=== PATIENT | male | born 1955 | race American Indian/Alaskan Native ===

== ENCOUNTER 2021-04-28 17:52 | Inpatient (IN) | payer BC ==
[2021-04-28] MEDS ORDERED: FUROSEMIDE 40 MG/4 ML INJ IV ONE (18:54)
[2021-04-28] MEDS ORDERED: METOPROLOL TARTRATE 5 MG/5 ML INJ IV ONE (18:59)
[2021-04-28 19:58] LABS: Basophils # (Auto) 0.1 K/mm3 (0.0-0.1); Basophils % (Auto) 0.6 % (0.0-1.8); Eosinophils # (Auto) 0.1 K/mm3 (0.0-0.4); Eosinophils % (Auto) 1.1 % (0.0-4.3); Hematocrit 37.8 % (35.5-45.6); Hemoglobin 12.2 gm/dl (11.8-15.2); Lymphocytes # (Auto) 2.8 K/mm3 (1.2-5.4); Lymphocytes % (Auto) 25.3 % (13.4-35.0); Mean Corpuscular HGB Conc 32 % (32-34); Mean Corpuscular Volume 91 fl (84-94); Monocytes # (Auto) 1.3 K/mm3 (0.0-0.8); Monocytes % (Auto) 11.6 % (0.0-7.3); Platelet Count 281 K/mm3 (140-440); Red Blood Count 4.15 M/mm3 (3.65-5.03); Red Cell Distribution Width 15.2 % (13.2-15.2)
--- NOTE | 2021-04-28 20:08 | XRay Report ---
XR chest routine 2V INDICATION / CLINICAL INFORMATION: Dyspnea COMPARISON: None available. FINDINGS: SUPPORT DEVICES: None. HEART / MEDIASTINUM: No significant abnormality. LUNGS / PLEURA: Lungs are clear. Costophrenic sulcal blunting with mild bibasilar opacities. ADDITIONAL FINDINGS: No significant additional findings. IMPRESSION: 1. Small effusions with bibasilar atelectasis. Signer Name: Christian Fuller MD Signed: 04/28/2021 8:04 PM Workstation Name: [id number]
[2021-04-28 20:12] LABS: Creatine Kinase MB 4.5 ng/mL (0.0-4.0)
[2021-04-28 20:13] LABS: INR 0.94 (0.87-1.13)
[2021-04-28 20:14] LABS: Albumin 3.5 g/dL (3.9-5); Calcium 9.5 mg/dL (8.4-10.2)
[2021-04-28 20:25] LABS: Chol/HDL Ratio 3.8 %
[2021-04-28] MEDS ORDERED: ASPIRIN 325 MG TAB PO ONE (20:35)
[2021-04-28] MEDS ORDERED: NITROGLYCERIN DRIP 50 MG/250 ML BOTTLE IV SCH (21:00)
--- NOTE | 2021-04-28 21:59 | Emergency Department Report ---
ED General Adult HPI - General Chief complaint: Dyspnea/Respdistress Stated complaint: SENT FROM [facility] Time Seen by Provider: 04/28/21 18:51 Source: patient Mode of arrival: Ambulatory Limitations: No Limitations - History of Present Illness Initial comments: lower extremity edema CHF ,newly diagnosed was sent from cardiology office for admission BP is leevated no chest pain -: Gradual, days(s) Consistency: constant Improves with: none Worsens with: none - Related Data Allergies Allergy/AdvReac Type Severity Reaction Status Date / Time No Known Allergies Allergy Unverified 04/28/21 18:02 ED Review of Systems ROS: Stated complaint: SENT FROM [facility] Other details as noted in HPI Constitutional: denies: chills, fever Eyes: denies: eye pain, eye discharge, vision change ENT: denies: ear pain, throat pain Respiratory: denies: cough, shortness of breath, wheezing Cardiovascular: denies: chest pain, palpitations Endocrine: no symptoms reported Gastrointestinal: denies: abdominal pain, nausea, diarrhea Genitourinary: denies: urgency, dysuria Musculoskeletal: denies: back pain, joint swelling, arthralgia Skin: denies: rash, lesions Neurological: denies: headache, weakness, paresthesias Psychiatric: denies: anxiety, depression Hematological/Lymphatic: denies: easy bleeding, easy bruising ED Past Medical Hx - Past Medical History Previous Medical History?: Yes Hx Hypertension: Yes ED Physical Exam - General Limitations: No Limitations General appearance: alert, in no apparent distress - Head Head exam: Present: atraumatic, normocephalic - Eye Eye exam: Present: normal appearance - ENT ENT exam: Present: mucous membranes moist - Neck Neck exam: Present: normal inspection - Respiratory Respiratory exam: Present: normal lung sounds bilaterally. Absent: respiratory distress - Cardiovascular Cardiovascular Exam: Present: regular rate, normal rhythm. Absent: systolic murmur, diastolic murmur, rubs, gallop - GI/Abdominal GI/Abdominal exam: Present: soft, normal bowel sounds - Rectal Rectal exam: Present: deferred - Extremities Exam Extremities exam: Present: normal inspection - Back Exam Back exam: Present: normal inspection - Neurological Exam Neurological exam: Present: alert, oriented X3 - Psychiatric Psychiatric exam: Present: normal affect, normal mood - Skin Skin exam: Present: warm, dry, intact, normal color. Absent: rash ED Course Vital Signs 04/28/21 18:01 Temperature 98.2 F Pulse Rate 102 H Respiratory 20 Rate Blood Pressure 145/119 [Right] O2 Sat by Pulse 99 Oximetry ED Medical Decision Making - Lab Data Result diagrams: 04/28/21 19:22 04/28/21 19:22 Critical care attestation.: If time is entered above; I have spent that time in minutes in the direct care of this critically ill patient, excluding procedure time. ED Disposition Clinical Impression: Hypertensive urgency, CHF exacerbation Disposition: ADMITTED INPATIENT Is pt being admited?: Yes Does the pt Need Aspirin: Yes Condition: Fair
[2021-04-28 22:47] LABS: Bilirubin,Urine NEG (Negative); Blood,Urine NEG (Negative); Color,Urine Yellow (Yellow); Mucus,Urine FEW /HPF; Urobilinogen,Urine < 2.0 mg/dL (<2.0)
[2021-04-28 22:50] LABS: RBC,Urine < 1.0 /HPF (0.0-6.0)
[2021-04-28] MEDS ORDERED: ONDANSETRON 4 MG/2 ML INJ IV PRN (22:52)
[2021-04-28] MEDS ORDERED: MORPHINE 4 MG/1 ML INJ IV PRN (22:52)
[2021-04-28] MEDS ORDERED: MORPHINE 2 MG/1 ML INJ IV PRN (22:52)
[2021-04-28] MEDS ORDERED: ACETAMINOPHEN 325 MG TAB PO PRN (22:52)
[2021-04-28] MEDS ORDERED: MAGNESIUM HYDROXIDE (MOM) ORAL LIQD UDC PO PRN (22:52)
--- NOTE | 2021-04-28 23:00 | History and Physical Report ---
History of Present Illness Date of examination: 04/28/21 Date of admission: 04/28/2021 Chief complaint: Lower Extremity Swelling History of present illness: 66-year-old -[place] male with known history of hypertension and recently diagnosed with CHF presents to the emergency room today complaining of shortness of breath and progressive swelling of his lower extremities. Patient has been having worsening swelling of his extremities over the past few weeks which he initially attributed to his prolonged standing at his job. 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 Patient denies any chest pain, no cough, no headache or dizziness no diaphoresis. Denies any fever or chills, no nausea vomiting and no abdominal pain. Work-up in the emergency room today, significant findings were that of BNP of 18,294, troponin was slightly elevated at 0.059. BUN was 24 and creatinine 1.4. Chest x-ray shows:Small effusions with bibasilar atelectasis. Past History Past Medical History: hypertension Past Surgical History: No surgical history Social history: smoking (Former Smoker) Family history: no significant family history Medications and Allergies Allergies Allergy/AdvReac Type Severity Reaction Status Date / Time No Known Allergies Allergy Unverified 04/28/21 18:02 Active Meds: Active Medications Nitroglycerin/Dextrose (Tridil Drip 50mg/250ml) 50 mg in 250 mls @ 1.5 mls/hr IV TITR ROBERT; Protocol Review of Systems Constitutional: no fever, no chills Ears, nose, mouth and throat: no nasal congestion, no sore throat Cardiovascular: no chest pain, no palpitations Respiratory: no cough, no shortness of breath Gastrointestinal: no abdominal pain, no nausea, no vomiting, no diarrhea Genitourinary Male: no dysuria, no hematuria, no flank pain, no nocturia Musculoskeletal: no neck pain, no low back pain Integumentary: no rash, no pruritis Neurological: no headaches, no confusion Psychiatric: no anxiety, no depression Endocrine: no polyphagia, no polydipsia, no polyuria, no nocturia Exam - Constitutional Vitals: Temp Pulse Resp BP Pulse Ox 98.2 F 102 H 20 145/119 99 04/28/21 18:01 04/28/21 18:01 04/28/21 18:01 04/28/21 18:01 04/28/21 18:01 General appearance: Present: no acute distress, well-nourished - EENT Eyes: Present: PERRL, EOM intact. Absent: scleral icterus ENT: hearing intact, clear oral mucosa, dentition normal - Neck Neck: Present: supple, normal ROM - Respiratory Respiratory effort: normal Respiratory: right: diminished - Cardiovascular Rhythm: regular Heart Sounds: Present: S1 & S2, systolic murmur (Soft systolic murmur). Absent: gallop, diastolic murmur, rub, click - Extremities Extremities: no ischemia, pulses intact, pulses symmetrical, normal temperature, normal color, Full ROM Extremity abnormal: edema (2+ Bilateral Lower Extremity Edema) - Abdominal General gastrointestinal: Present: soft, non-tender, non-distended, normal bowel sounds. Absent: mass - Integumentary Integumentary: Present: clear, warm, dry. Absent: rash - Musculoskeletal Musculoskeletal: strength equal bilaterally - Psychiatric Psychiatric: appropriate mood/affect, intact judgment & insight, memory intact - Neurologic Neurologic: CNII-XII intact, no focal deficits, moves all extremities HEART Score - HEART Score Troponin: Troponin T 0.059 ng/mL (0.00-0.029) H 04/28/21 19:22 Results - Labs CBC & Chem 7: 04/28/21 19:22 04/28/21 19:22 Labs: Abnormal lab results 04/28/21 04/28/21 04/28/21 Range/Units : 19: 19:22 WBC 11.2 H (4.5-11.0) K/mm3 Armstrong % (Auto) 11.6 H (0.0-7.3) % Armstrong # (Auto) 1.3 H (0.0-0.8) K/mm3 Sodium 135 L (137-145) mmol/L BUN 24 H (9-20) mg/dL Creatinine 1.4 H (0.8-1.3) mg/dL Glucose 120 H (75-100) mg/dL CK-MB (CK-2) 4.5 H (0.0-4.0) ng/mL Troponin T 0.059 H (0.00-0.029) ng/mL NT-Pro-B Natriuret Pep 68003 H (0-900) pg/mL Albumin 3.5 L (3.9-5) g/dL Assessment and Plan - Patient Problems (1) CHF exacerbation Current Visit: Yes Status: Acute Plan to address problem: Patient placed on diuretics. Will monitor inputs and outputs and also monitor daily weight. We will schedule patient for echocardiogram. Consult placed to cardiology for evaluation and further recommendations. (2) Hypertension Current Visit: Yes Status: Acute Plan to address problem: We will resume routine home medications and monitor vital signs closely. (3) Elevated troponin Current Visit: Yes Status: Acute Plan to address problem: Possibly troponin leak Patient denies any chest pain EKG unremarkable. Will await further evaluation and recommendations from cardiology. (4) KEYLA (acute kidney injury) Current Visit: Yes Status: Acute Plan to address problem: Baseline BUN and creatinine unknown. Will consult to nephrology for recommendations. (5) DVT prophylaxis Current Visit: No Status: Acute Plan to address problem: Patient will be placed on subcutaneous heparin. (6) Full code status Current Visit: No Status: Acute Plan to address problem: Patient is full code.
[2021-04-28] MEDS ORDERED: ASPIRIN 81 MG TAB CHEW PO ONE (23:32)
[2021-04-29 04:58] LABS: BUN/Creatinine Ratio 17; Blood Urea Nitrogen 24 mg/dL (9-20); Calcium 8.6 mg/dL (8.4-10.2); Hemolysis Index 2
[2021-04-29] MEDS: HEPARIN 5,000 UNIT/1 ML VIAL SUB-Q SCH ×3 (06:44→21:49)
[2021-04-29] MEDS: FUROSEMIDE 40 MG/4 ML INJ IV SCH ×2 (06:44→21:49)
--- NOTE | 2021-04-29 07:47 | Consultation ---
History of Present Illness - Reason for Consult Consult date: 04/29/21 - History of Present Illness Mr. Davis is a 66yo who presents to the ED upon direction of cardiology with hypertension and symptoms of heart failure. Patient reports that he has not received medical care in appx 4yrs. He reports being in usual state of health until appx 4-5 months ago when he began experiencing dyspnea with exertion and leg swelling. He denies chest pain, orthopnea. He denies foamy,frothy urine. Mr. Davis denies a prior history of kidney disease. He denies NSAID use, epistaxix, hemoptysis, hematuria. Past History Past Medical History: hypertension Past Surgical History: No surgical history Social history: smoking (Former Smoker) Family history: no significant family history Medications and Allergies Allergies Allergy/AdvReac Type Severity Reaction Status Date / Time No Known Allergies Allergy Unverified 04/28/21 18:02 Active Meds: Active Medications Acetaminophen (Acetaminophen 325 Mg Tab) 650 mg PO Q4H PRN PRN Reason: Pain MILD(1-3)/Fever >100.5/MICHEL Aspirin (Aspirin 325 Mg Tab) 325 mg PO QDAY ROBERT Furosemide (Furosemide 40 Mg/4 Ml Inj) 40 mg IV BID@0600,1800 [facility] Last Admin: 04/29/21 06:44 Dose: 40 mg Heparin Sodium (Porcine) (Heparin 5,000 Unit/1 Ml Vial) 5,000 unit SUB-Q Q8HR [facility] Last Admin: 04/29/21 06:44 Dose: 5,000 unit Nitroglycerin/Dextrose (Tridil Drip 50mg/250ml) 50 mg in 250 mls @ 1.5 mls/hr IV TITR ROBERT; Protocol Magnesium Hydroxide (Magnesium Hydroxide (Mom) Oral Liqd Udc) 30 ml PO Q4H PRN PRN Reason: Constipation Morphine Sulfate (Morphine 2 Mg/1 Ml Inj) 2 mg IV Q4H PRN PRN Reason: Pain, Moderate (4-6) Morphine Sulfate (Morphine 4 Mg/1 Ml Inj) 4 mg IV Q4H PRN PRN Reason: Pain , Severe (7-10) Ondansetron HCl (Ondansetron 4 Mg/2 Ml Inj) 4 mg IV Q8H PRN PRN Reason: Nausea And Vomiting Sodium Chloride (Sodium Chloride 0.9% 10 Ml Flush Syringe) 10 ml IV BID [facility] Sodium Chloride (Sodium Chloride 0.9% 10 Ml Flush Syringe) 10 ml IV PRN PRN PRN Reason: LINE FLUSH Review of Systems All systems: negative Exam - Vital Signs Vital signs: Vital Signs Temp Pulse Resp BP Pulse Ox 98.2 F 102 H 20 145/119 99 04/28/21 18:01 04/28/21 18:01 04/28/21 18:01 04/28/21 18:01 04/28/21 18:01 - General Appearance General appearance: well-developed, well-nourished EENT: ATNC Neck: Present: neck supple Respiratory: Clear to Ascultation Heart: regular, S1S2 Gastrointestinal: Present: normal. Absent: tenderness, distended Integumentary: warm and dry Neurologic: alert and oriented x3 Musculoskeletal: Present: other (1+ edema) Psychiatric: cooperative Results - Lab Results 04/28/21 19:22 04/29/21 04:13 Most recent lab results Calcium 8.6 mg/dL (8.4-10.2) 04/29/21 04:13 Assessment and Plan Impression * Acute kidney injury vs underlying CKD * HFrEF * Pleural effusions * Hypertension Plan: * Patient likely with underlying chronic kidney disease due to uncont rolled/untreated hypertension. No indication for renal replacement therapy * IV diuresis per cardiology * Will obtain serologic work up * Follow up renal ultrasound * Dose medications for renal function * Avoid potential nephrotoxins * AM labs
--- NOTE | 2021-04-29 09:52 | Consultation ---
History of Present Illness Consult date: 04/29/21 Consult reason: congestive heart failure, hypertension History of present illness: The patient is a 66-year-old man with a long history of chronic hypertension for which he was noncompliant with medical therapy and physician follow-ups. 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 He was subsequently referred to the emergency room for evaluation and management of suspected congestive heart failure. There was also a report of a systolic heart murmur that needed further echocardiographic assessment. The patient has no chest pain, no palpitations, no prior cardiac history. After overnight diuresis in the emergency room, his edema is resolving, but hius blood pressures remain elevated at 150-160s systolic. ECG in the chart reveals a mild sinus tachycardia at 113, incomplete right bundle branch block, no acute ischemic changes. There is evidence of a possible right axis deviation, but this may represent limb lead malplacement. Chest x- ray shows borderline cardiomegaly, chronic interstitial changes in the lung mendez and a small right pleural effusion. Past History Past Medical History: hypertension Past Surgical History: No surgical history Social history: smoking (Former Smoker) Family history: no significant family history Medications and Allergies Allergies Allergy/AdvReac Type Severity Reaction Status Date / Time No Known Allergies Allergy Unverified 04/28/21 18:02 Active Meds: Active Medications Acetaminophen (Acetaminophen 325 Mg Tab) 650 mg PO Q4H PRN PRN Reason: Pain MILD(1-3)/Fever >100.5/MICHEL Aspirin (Aspirin 325 Mg Tab) 325 mg PO QDAY [facility] Furosemide (Furosemide 40 Mg/4 Ml Inj) 40 mg IV BID@0600,1800 [facility] Last Admin: 04/29/21 06:44 Dose: 40 mg Heparin Sodium (Porcine) (Heparin 5,000 Unit/1 Ml Vial) 5,000 unit SUB-Q Q8HR [facility] Last Admin: 04/29/21 06:44 Dose: 5,000 unit Nitroglycerin/Dextrose (Tridil Drip 50mg/250ml) 50 mg in 250 mls @ 1.5 mls/hr IV TITR ROBERT; Protocol Magnesium Hydroxide (Magnesium Hydroxide (Mom) Oral Liqd Udc) 30 ml PO Q4H PRN PRN Reason: Constipation Morphine Sulfate (Morphine 2 Mg/1 Ml Inj) 2 mg IV Q4H PRN PRN Reason: Pain, Moderate (4-6) Morphine Sulfate (Morphine 4 Mg/1 Ml Inj) 4 mg IV Q4H PRN PRN Reason: Pain , Severe (7-10) Ondansetron HCl (Ondansetron 4 Mg/2 Ml Inj) 4 mg IV Q8H PRN PRN Reason: Nausea And Vomiting Sodium Chloride (Sodium Chloride 0.9% 10 Ml Flush Syringe) 10 ml IV BID ROBERT Sodium Chloride (Sodium Chloride 0.9% 10 Ml Flush Syringe) 10 ml IV PRN PRN PRN Reason: LINE FLUSH Review of Systems Cardiovascular: edema, shortness of breath, no chest pain, no orthopnea, no palpitations, no rapid/irregular heart beat, no syncope, no lightheadedness Physical Examination Vital Signs Temp Pulse Resp BP Pulse Ox 98.2 F 102 H 20 145/119 99 04/28/21 18:01 04/28/21 18:01 04/28/21 18:01 04/28/21 18:01 04/28/21 18:01 General appearance: no acute distress HEENT: Positive: PERRL Neck: Positive: neck supple Cardiac: Positive: Reg Rate and Rhythm, Systolic Murmur Lungs: Positive: Decreased Breath Sounds Neuro: Positive: Grossly Intact Abdomen: Positive: Soft Male genitourinary: Positive: deferred Skin: Positive: Clear Extremities: Present: +1 Edema Results 04/28/21 19:22 04/29/21 04:13 Cardiac Enzymes 04/28/21 Range/Units : AST 25 (5-40) units/L CK-MB (CK-2) 4.5 H (0.0-4.0) ng/mL Coagulation 04/28/21 Range/Units : PT 13.6 (12.2-14.9) Sec. INR 0.94 (0.87-1.13) Lipids 04/28/21 Range/Units : Triglycerides 65 (2-149) mg/dL Cholesterol 160 (50-199) mg/dL HDL Cholesterol 42 (40-59) mg/dL Cholesterol/HDL Ratio 3.80 % CBC 04/28/21 Range/Units : WBC 11.2 H (4.5-11.0) K/mm3 RBC 4.15 (3.65-5.03) M/mm3 Hgb 12.2 (11.8-15.2) gm/dl Hct 37.8 (35.5-45.6) % Plt Count 281 (140-440) K/mm3 Lymph # (Auto) 2.8 (1.2-5.4) K/mm3 Harvey # (Auto) 1.3 H (0.0-0.8) K/mm3 Eos # (Auto) 0.1 (0.0-0.4) K/mm3 Baso # (Auto) 0.1 (0.0-0.1) K/mm3 Comprehensive Metabolic Panel 04/28/21 04/29/21 Range/Units 19:22 04:13 Sodium 135 L 139 (137-145) mmol/L Potassium 3.7 3.7 (3.6-5.0) mmol/L Chloride 101.0 104.5 (98-107) mmol/L Carbon Dioxide 22 23 (22-30) mmol/L BUN 24 H 24 H (9-20) mg/dL Creatinine 1.4 H 1.4 H (0.8-1.3) mg/dL Glucose 120 H 88 (75-100) mg/dL Calcium 9.5 8.6 (8.4-10.2) mg/dL AST 25 (5-40) units/L ALT 31 (7-56) units/L Alkaline Phosphatase 108 (35-129) units/L Total Protein 6.8 (6.3-8.2) g/dL Albumin 3.5 L (3.9-5) g/dL EKG interpretations - Telemetry EKG Rhythm: Sinus Tachycardia Assessment and Plan - Patient Problems (1) CHF exacerbation Current Visit: Yes Status: Acute Plan to address problem: Patient with longstanding hypertension, uncontrolled due to noncompliance with medical therapy, presents with symptoms of heart failure and fluid overload, as well as a systolic heart murmur. In addition to optimal blood pressure management and diuretics, we will order an echocardiogram for left ventricular function and valvular function assessment. Further cardiac evaluation and management will depend on clinical course.
[2021-04-29] MEDS ORDERED: ASPIRIN 325 MG TAB PO SCH (10:00)
[2021-04-29] MEDS: METOPROLOL TARTRATE 50 MG TAB PO SCH ×2 (10:30→21:49)
[2021-04-29] MEDS: POTASSIUM CHLORIDE ER 10 MEQ TAB PO SCH (10:33)
[2021-04-29] MEDS: ASPIRIN EC 81 MG TAB PO SCH (11:00)
[2021-04-29] MEDS: VALSARTAN 40 MG TAB PO SCH ×2 (11:00→21:49)
--- NOTE | 2021-04-29 12:39 | Ultrasound Report ---
ULTRASOUND RENAL INDICATION / CLINICAL INFORMATION: KEYLA. COMPARISON: None available. FINDINGS: RIGHT KIDNEY: Length = 13.0 cm. - Echogenicity: Normal. - Cortical Thickness: Normal. - Hydronephrosis: None. - Cyst / Mass: None. - Stones: None seen. LEFT KIDNEY: Length = 12.1 cm. - Echogenicity: Normal. - Cortical Thickness: Normal. - Hydronephrosis: None. - Cyst / Mass: None. - Stones: None seen. URINARY BLADDER: No significant abnormality. FREE FLUID: None. ADDITIONAL FINDINGS: Incidental finding of bilateral pleural effusions. IMPRESSION: 1. No significant abnormality of the kidneys or urinary bladder. 2. Incidental finding of bilateral pleural effusions, right greater than left. Scribed by: Rosanna Wylie RDMS, RVT Scribed: 04/29/2021 10:21 AM I have reviewed the images, agree with this report, and edited this report as needed. Signer Name: Mcihael Watt MD Signed: 04/29/2021 12:34 PM Workstation Name: [id number]
--- NOTE | 2021-04-29 13:43 | Progress Note ---
Assessment and Plan Assessment and plan: CHF exacerbation Accelerated hypertension Acute kidney injury 04/29/2021. Patient appears to have new diagnosis of CHF. We will check echocardiogram to assess for systolic and diastolic dysfunction. Continue IV diuresis per cardiology recommendations. Cardiology also started metoprolol 50 mg p.o. twice daily and aspirin daily. Diovan 80 mg p.o. twice daily for afterload reduction and blood pressure control. Patient does not appear to have some mild acute kidney injury with a creatinine of 1.4. I suspect patient likely has underlying CKD. Nephrology consulted. Check renal ultrasound. History Interval history: No new issues overnight Hospitalist Physical - Constitutional Vitals: Temp Pulse Resp BP Pulse Ox 98.2 F 103 H 17 161/108 98 04/28/21 18:01 04/29/21 03:00 04/29/21 03:00 04/29/21 03:00 04/29/21 03:00 General appearance: Present: no acute distress - EENT Eyes: Present: PERRL, EOM intact ENT: hearing intact, clear oral mucosa, dentition normal - Neck Neck: Present: supple, normal ROM - Respiratory Respiratory effort: normal Respiratory: bilateral: CTA - Cardiovascular Rhythm: regular Heart Sounds: Present: S1 & S2. Absent: gallop, rub - Extremities Extremities: no ischemia, No edema, Full ROM - Abdominal General gastrointestinal: soft, non-tender, non-distended, normal bowel sounds - Integumentary Integumentary: Present: clear, warm, dry - Neurologic Neurologic: CNII-XII intact, moves all extremities HEART Score - HEART Score Troponin: Troponin T 0.059 ng/mL (0.00-0.029) H 04/28/21 19:22 Results - Labs CBC & Chem 7: 04/28/21 19:22 04/29/21 04:13 Labs: Laboratory Last Values WBC 11.2 K/mm3 (4.5-11.0) H 04/28/21 19: RBC 4.15 M/mm3 (3.65-5.03) 04/28/21 19:22 Hgb 12.2 gm/dl (11.8-15.2) 04/28/21 19: Hct 37.8 % (35.5-45.6) 04/28/21 19: MCV 91 fl (84-94) 04/28/21 19:22 MCH 30 pg (28-32) 04/28/21 19: MCHC 32 % (32-34) 04/28/21 19: RDW 15.2 % (13.2-15.2) 04/28/21 19: Plt Count 281 K/mm3 (140-440) 04/28/21 19: Lymph % (Auto) 25.3 % (13.4-35.0) 04/28/21 19: [place] % (Auto) 11.6 % (0.0-7.3) H 04/28/21 19: Eos % (Auto) 1.1 % (0.0-4.3) 04/28/21: Baso % (Auto) 0.6 % (0.0-1.8) 04/28/21: Lymph # (Auto) 2.8 K/mm3 (1.2-5.4) 04/28/21: [place] # (Auto) 1.3 K/mm3 (0.0-0.8) H 04/28/21 19: Eos # (Auto) 0.1 K/mm3 (0.0-0.4) 04/28/21: Baso # (Auto) 0.1 K/mm3 (0.0-0.1) 04/28/21: Seg Neutrophils % 61.4 % (40.0-70.0) 04/28/21: Seg Neutrophils # 6.9 K/mm3 (1.8-7.7) 04/28/21: PT 13.6 Sec. (12.2-14.9) 04/28/21 19: INR 0.94 (0.87-1.13) 04/28/21 19: Sodium 139 mmol/L (137-145) 04/29/21 04:13 Potassium 3.7 mmol/L (3.6-5.0) 04/29/21 04:13 Chloride 104.5 mmol/L (98-107) 04/29/21 04:13 Carbon Dioxide 23 mmol/L (22-30) 04/29/21 04:13 Anion Gap 15 mmol/L 04/29/21 04:13 BUN 24 mg/dL (9-20) H 04/29/21 04:13 Creatinine 1.4 mg/dL (0.8-1.3) H 04/29/21 04:13 Estimated GFR > 60 ml/min 04/29/21 04:13 BUN/Creatinine Ratio 17 % 04/29/21 04:13 Glucose 88 mg/dL (75-100) 04/29/21 04:13 Calcium 8.6 mg/dL (8.4-10.2) 04/29/21 04:13 Total Bilirubin 0.70 mg/dL (0.1-1.2) 04/28/21 19: AST 25 units/L (5-40) 04/28/21: ALT 31 units/L (7-56) 04/28/21: Alkaline Phosphatase 108 units/L (35-129) 04/28/21 19: Total Creatine Kinase 141 units/L (55-170) 04/28/21 19: CK-MB (CK-2) 4.5 ng/mL (0.0-4.0) H 04/28/21: CK-MB (CK-2) Rel Index 3.1 (0-4) 04/28/21 19: Troponin T 0.059 ng/mL (0.00-0.029) H 04/28/21: NT-Pro-B Natriuret Pep 00897 pg/mL (0-900) H 04/28/21 19:22 Total Protein 6.8 g/dL (6.3-8.2) 04/28/21 19: Albumin 3.5 g/dL (3.9-5) L 04/28/21 19: Albumin/Globulin Ratio 1.1 % 04/28/21 19: Triglycerides 65 mg/dL (2-149) 04/28/21 19: Cholesterol 160 mg/dL (50-199) 04/28/21: LDL Cholesterol Direct 109 mg/dL (50-130) 04/28/21: HDL Cholesterol 42 mg/dL (40-59) 04/28/21: Cholesterol/HDL Ratio 3.80 % 04/28/21: Lipase 28 units/L (13-60) 04/28/21 19: Urine Color Yellow (Yellow) 04/28/21 22:30 Urine Turbidity Clear (Clear) 04/28/21 22:30 Urine pH 7.0 (5.0-7.0) 04/28/21 22:30 Ur Specific [place] 1.006 (1.003-1.030) 04/28/21 22:30 Urine Protein 30 mg/dl mg/dL (Negative) 04/28/21 22:30 Urine Glucose (UA) Neg mg/dL (Negative) 04/28/21 22:30 Urine Ketones Neg mg/dL (Negative) 04/28/21 22:30 Urine Blood Neg (Negative) 04/28/21 22:30 Urine Nitrite Neg (Negative) 04/28/21 22:30 Urine Bilirubin Neg (Negative) 04/28/21 22:30 Urine Urobilinogen < 2.0 mg/dL (<2.0) 04/28/21 22:30 Ur Leukocyte Esterase Neg (Negative) 04/28/21 22:30 Urine WBC (Auto) 1.0 /HPF (0.0-6.0) 04/28/21 22:30 Urine RBC (Auto) < 1.0 /HPF (0.0-6.0) 04/28/21 22:30 Urine Mucus Few /HPF 04/28/21 22:30 Active Medications - Current Medications Current Medications: Generic Name Dose Route Start Last Admin Trade Name Freq PRN Reason Stop Dose Admin Acetaminophen 650 mg 04/28/21 22:52 Acetaminophen 325 Mg Tab PO Q4H PRN Pain MILD(1-3)/Fever >100.5/MICHEL Aspirin 81 mg 04/29/21 11:00 Aspirin Ec 81 Mg Tab PO QDAY ROBERT Furosemide 40 mg 04/29/21 06:00 04/29/21 06:44 Furosemide 40 Mg/4 Ml Inj IV 40 mg BID@0600,1800 ROBERT Administration Heparin Sodium (Porcine) 5,000 unit 04/29/21 06:00 04/29/21 06:44 Heparin 5,000 Unit/1 Ml Vial SUB-Q 5,000 unit Q8HR ROBERT Administration Magnesium Hydroxide 30 ml 04/28/21 22:52 Magnesium Hydroxide (Mom) Oral Liqd Udc PO Q4H PRN Constipation Metoprolol Tartrate 50 mg 04/29/21 10:00 Metoprolol Tartrate 50 Mg Tab PO BID ROBERT Morphine Sulfate 2 mg 04/28/21 22:52 Morphine 2 Mg/1 Ml Inj IV Q4H PRN Pain, Moderate (4-6) Morphine Sulfate 4 mg 04/28/21 22:52 Morphine 4 Mg/1 Ml Inj IV Q4H PRN Pain , Severe (7-10) Ondansetron HCl 4 mg 04/28/21 22:52 Ondansetron 4 Mg/2 Ml Inj IV Q8H PRN Nausea And Vomiting Potassium Chloride 10 meq 04/29/21 10:00 Potassium Chloride Er 10 Meq Tab PO QDAY ROBERT Sodium Chloride 10 ml 04/29/21 10:00 04/29/21 10:42 Sodium Chloride 0.9% 10 Ml Flush Syringe IV 10 ml BID ROBERT Administration Sodium Chloride 10 ml 04/28/21 22:52 Sodium Chloride 0.9% 10 Ml Flush Syringe IV PRN PRN LINE FLUSH Valsartan 80 mg 04/29/21 11:00 Valsartan 40 Mg Tab PO BID ROBERT
[2021-04-30] MEDS: FUROSEMIDE 40 MG/4 ML INJ IV SCH ×2 (05:55→18:22)
[2021-04-30] MEDS: HEPARIN 5,000 UNIT/1 ML VIAL SUB-Q SCH ×3 (05:55→21:11)
--- NOTE | 2021-04-30 08:17 | Progress Note ---
Assessment and Plan Impression * Acute kidney injury vs underlying CKD --Renal u/s: right 13cm, left 12.1cm; nml echogenicity * HFrEF * Pleural effusions * Hypertension Plan: * Patient likely with underlying chronic kidney disease due to uncontrolled/untreated hypertension. No indication for renal replacement therapy * Continue IV diuresis per cardiology * Strict I/O * Await pending serologic work up * Renal ultrasound reviewed * Dose medications for renal function * Avoid potential nephrotoxins * AM labs Subjective Date of service: 04/30/21 Interval history: Patient has no complaints today Objective - Vital Signs Vital signs: Vital Signs - 12hr 04/29/21 04/30/21 04/30/21 23:55 00:00 00:27 Temperature 97.4 F L Pulse Rate 75 75 Respiratory 16 Rate Blood Pressure 126/95 O2 Sat by Pulse 91 99 Oximetry 04/30/21 03:31 Temperature 98.2 F Pulse Rate 94 H Respiratory 16 Rate Blood Pressure 147/98 O2 Sat by Pulse 92 Oximetry - General Appearance General appearance: well-developed, well-nourished EENT: ATNC Respiratory: Present: Clear to Ascultation Cardiology: S1S2 Musculoskeletal: other (2+ LE edema) - Lab 04/28/21 19:22 04/30/21 08:24 Most recent lab results Calcium 8.6 mg/dL (8.4-10.2) 04/29/21 04:13 Medications & Allergies - Medications Allergies/Adverse Reactions: Allergies No Known Allergies Allergy (Unverified 04/28/21 18:02) Active Medications: Generic Name Dose Route Start Last Admin Trade Name Freq PRN Reason Stop Dose Admin Acetaminophen 650 mg 04/28/21 22:52 Acetaminophen 325 Mg Tab PO Q4H PRN Pain MILD(1-3)/Fever >100.5/MICHEL Aspirin 81 mg 04/29/21 11:00 04/29/21 11:00 Aspirin Ec 81 Mg Tab PO 81 mg QDAY ROBERT Administration Furosemide 40 mg 04/29/21 06:00 04/30/21 05:55 Furosemide 40 Mg/4 Ml Inj IV 40 mg BID@0600,1800 ROBERT Administration Heparin Sodium (Porcine) 5,000 unit 04/29/21 06:00 04/30/21 05:55 Heparin 5,000 Unit/1 Ml Vial SUB-Q 5,000 unit Q8HR ROBERT Administration Magnesium Hydroxide 30 ml 04/28/21 22:52 Magnesium Hydroxide (Mom) Oral Liqd Udc PO Q4H PRN Constipation Metoprolol Tartrate 50 mg 04/29/21 10:00 04/29/21 21:49 Metoprolol Tartrate 50 Mg Tab PO 50 mg BID ROBERT Administration Morphine Sulfate 2 mg 04/28/21 22:52 Morphine 2 Mg/1 Ml Inj IV Q4H PRN Pain, Moderate (4-6) Morphine Sulfate 4 mg 04/28/21 22:52 Morphine 4 Mg/1 Ml Inj IV Q4H PRN Pain , Severe (7-10) Ondansetron HCl 4 mg 04/28/21 22:52 Ondansetron 4 Mg/2 Ml Inj IV Q8H PRN Nausea And Vomiting Potassium Chloride 10 meq 04/29/21 10:00 04/29/21 10:33 Potassium Chloride Er 10 Meq Tab PO 10 meq QDAY ROBERT Administration Sodium Chloride 10 ml 04/29/21 10:00 04/29/21 21:49 Sodium Chloride 0.9% 10 Ml Flush Syringe IV 10 ml BID ROBERT Administration Sodium Chloride 10 ml 04/28/21 22:52 Sodium Chloride 0.9% 10 Ml Flush Syringe IV PRN PRN LINE FLUSH Valsartan 80 mg 04/29/21 11:00 04/29/21 21:49 Valsartan 40 Mg Tab PO 80 mg BID ROBERT Administration
--- NOTE | 2021-04-30 09:22 | Progress Note ---
Assessment and Plan Assessment and plan: Acute systolic heart failure Acute hypoxic respiratory failure Moderate pulmonary hypertension Accelerated hypertension Acute kidney injury 04/29/2021. Patient appears to have new diagnosis of CHF. We will check echocardiogram to assess for systolic and diastolic dysfunction. Continue IV diuresis per cardiology recommendations. Cardiology also started metoprolol 50 mg p.o. twice daily and aspirin daily. Diovan 80 mg p.o. twice daily for afterload reduction and blood pressure control. Patient does not appear to have some mild acute kidney injury with a creatinine of 1.4. I suspect patient likely has underlying CKD. Nephrology consulted. Check renal ultrasound. 04/30/2021. Echocardiogram reveals left ventricle moderately dilated with systolic function moderately decreased. Moderate to severe concentric left ventricular hypertrophy with an EF of 35-40%. Moderate pulmonary hypertension noted with RVSP of 45 mmHg. Continue GDMT with aspirin, metoprolol 50 mg p.o. twice daily, Lasix 40 mg IV twice daily and ARB (valsartan 80 mg p.o. twice daily). Nephrology believes patient has underlying chronic kidney disease due to uncontrolled/untreated hypertension. However, no need for [employer] at this time. Strict I/O. Await renal serologic work-up. Renal ultrasound reveals right ki dney 13 cm and left kidney 12.1 cm with normal echogenicity. History Interval history: No new issues overnight Hospitalist Physical - Constitutional Vitals: Temp Pulse Resp BP Pulse Ox 98.8 F 94 H 17 149/100 92 04/30/21 08:15 04/30/21 03:31 04/30/21 08:15 04/30/21 08:15 04/30/21 03:31 General appearance: Present: no acute distress - EENT Eyes: Present: PERRL, EOM intact ENT: hearing intact, clear oral mucosa, dentition normal - Neck Neck: Present: supple, normal ROM - Respiratory Respiratory effort: normal Respiratory: bilateral: CTA - Cardiovascular Rhythm: regular Heart Sounds: Present: S1 & S2. Absent: gallop, rub - Extremities Extremities: no ischemia, No edema, Full ROM - Abdominal General gastrointestinal: soft, non-tender, non-distended, normal bowel sounds - Integumentary Integumentary: Present: clear, warm, dry - Neurologic Neurologic: CNII-XII intact, moves all extremities HEART Score - HEART Score Troponin: Troponin T 0.059 ng/mL (0.00-0.029) H 04/28/21 19:22 Results - Labs CBC & Chem 7: 04/28/21 19:22 04/29/21 04:13 Labs: Laboratory Last Values WBC 11.2 K/mm3 (4.5-11.0) H 04/28/21 19: RBC 4.15 M/mm3 (3.65-5.03) 04/28/21: Hgb 12.2 gm/dl (11.8-15.2) 04/28/21 19: Hct 37.8 % (35.5-45.6) 04/28/21 19: MCV 91 fl (84-94) 04/28/21: MCH 30 pg (28-32) 04/28/21: MCHC 32 % (32-34) 04/28/21: RDW 15.2 % (13.2-15.2) 04/28/21: Plt Count 281 K/mm3 (140-440) 04/28/21: Lymph % (Auto) 25.3 % (13.4-35.0) 04/28/21 19: [place] % (Auto) 11.6 % (0.0-7.3) H 04/28/21: Eos % (Auto) 1.1 % (0.0-4.3) 04/28/21: Baso % (Auto) 0.6 % (0.0-1.8) 04/28/21: Lymph # (Auto) 2.8 K/mm3 (1.2-5.4) 04/28/21: [place] # (Auto) 1.3 K/mm3 (0.0-0.8) H 04/28/21: Eos # (Auto) 0.1 K/mm3 (0.0-0.4) 04/28/21: Baso # (Auto) 0.1 K/mm3 (0.0-0.1) 04/28/21: Seg Neutrophils % 61.4 % (40.0-70.0) 04/28/21: Seg Neutrophils # 6.9 K/mm3 (1.8-7.7) 04/28/21 19: PT 13.6 Sec. (12.2-14.9) 04/28/21 19:22 INR 0.94 (0.87-1.13) 04/28/21 19:22 Sodium 139 mmol/L (137-145) 04/29/21 04:13 Potassium 3.7 mmol/L (3.6-5.0) 04/29/21 04:13 Chloride 104.5 mmol/L (98-107) 04/29/21 04:13 Carbon Dioxide 23 mmol/L (22-30) 04/29/21 04:13 Anion Gap 15 mmol/L 04/29/21 04:13 BUN 24 mg/dL (9-20) H 04/29/21 04:13 Creatinine 1.4 mg/dL (0.8-1.3) H 04/29/21 04:13 Estimated GFR > 60 ml/min 04/29/21 04:13 BUN/Creatinine Ratio 17 % 04/29/21 04:13 Glucose 88 mg/dL (75-100) 04/29/21 04:13 Calcium 8.6 mg/dL (8.4-10.2) 04/29/21 04:13 Total Bilirubin 0.70 mg/dL (0.1-1.2) 04/28/21 19: AST 25 units/L (5-40) 04/28/21 19: ALT 31 units/L (7-56) 04/28/21 19: Alkaline Phosphatase 108 units/L (35-129) 04/28/21 19: Total Creatine Kinase 141 units/L (55-170) 04/28/21 19: CK-MB (CK-2) 4.5 ng/mL (0.0-4.0) H 04/28/21 19: CK-MB (CK-2) Rel Index 3.1 (0-4) 04/28/21 19: Troponin T 0.059 ng/mL (0.00-0.029) H 04/28/21 19:22 NT-Pro-B Natriuret Pep 26830 pg/mL (0-900) H 04/28/21 19: Total Protein 6.8 g/dL (6.3-8.2) 04/28/21 19: Albumin 3.5 g/dL (3.9-5) L 04/28/21: Albumin/Globulin Ratio 1.1 % 04/28/21: Triglycerides 65 mg/dL (2-149) 04/28/21: Cholesterol 160 mg/dL (50-199) 04/28/21: LDL Cholesterol Direct 109 mg/dL (50-130) 04/28/21: HDL Cholesterol 42 mg/dL (40-59) 04/28/21 Cholesterol/HDL Ratio 3.80 % 04/28/21: Lipase 28 units/L (13-60) 04/28/21: Urine Color Yellow (Yellow) 04/28/21 22:30 Urine Turbidity Clear (Clear) 04/28/21 22: Urine pH 7.0 (5.0-7.0) 04/28/21 22:30 Ur Specific [place] 1.006 (1.003-1.030) 04/28/21 22:30 Urine Protein 30 mg/dl mg/dL (Negative) 04/28/21 22:30 Urine Glucose (UA) Neg mg/dL (Negative) 04/28/21 22:30 Urine Ketones Neg mg/dL (Negative) 04/28/21 22:30 Urine Blood Neg (Negative) 04/28/21 22:30 Urine Nitrite Neg (Negative) 04/28/21 22:30 Urine Bilirubin Neg (Negative) 04/28/21 22:30 Urine Urobilinogen < 2.0 mg/dL (<2.0) 04/28/21 22:30 Ur Leukocyte Esterase Neg (Negative) 04/28/21 22:30 Urine WBC (Auto) 1.0 /HPF (0.0-6.0) 04/28/21 22:30 Urine RBC (Auto) < 1.0 /HPF (0.0-6.0) 04/28/21 22:30 Urine Mucus Few /HPF 04/28/21 22:30 [place]el/IV: Voiding Method Toilet Active Medications - Current Medications Current Medications: Generic Name Dose Route Start Last Admin Trade Name Freq PRN Reason Stop Dose Admin Acetaminophen 650 mg 04/28/21 22:52 Acetaminophen 325 Mg Tab PO Q4H PRN Pain MILD(1-3)/Fever >100.5/MICHEL Aspirin 81 mg 04/29/21 11:00 04/29/21 11:00 Aspirin Ec 81 Mg Tab PO 81 mg QDAY ROBERT Administration Furosemide 40 mg 04/29/21 06:00 04/30/21 05:55 Furosemide 40 Mg/4 Ml Inj IV 40 mg BID@0600,1800 ROBERT Administration Heparin Sodium (Porcine) 5,000 unit 04/29/21 06:00 04/30/21 05:55 Heparin 5,000 Unit/1 Ml Vial SUB-Q 5,000 unit Q8HR ROBRET Administration Magnesium Hydroxide 30 ml 04/28/21 22:52 Magnesium Hydroxide (Mom) Oral Liqd Udc PO Q4H PRN Constipation Metoprolol Tartrate 50 mg 04/29/21 10:00 04/29/21 21:49 Metoprolol Tartrate 50 Mg Tab PO 50 mg BID ROBERT Administration Morphine Sulfate 2 mg 04/28/21 22:52 Morphine 2 Mg/1 Ml Inj IV Q4H PRN Pain, Moderate (4-6) Morphine Sulfate 4 mg 04/28/21 22:52 Morphine 4 Mg/1 Ml Inj IV Q4H PRN Pain , Severe (7-10) Ondansetron HCl 4 mg 04/28/21 22:52 Ondansetron 4 Mg/2 Ml Inj IV Q8H PRN Nausea And Vomiting Potassium Chloride 10 meq 04/29/21 10:00 04/29/21 10:33 Potassium Chloride Er 10 Meq Tab PO 10 meq QDAY ROBERT Administration Sodium Chloride 10 ml 04/29/21 10:00 04/29/21 21:49 Sodium Chloride 0.9% 10 Ml Flush Syringe IV 10 ml BID ROBERT Administration Sodium Chloride 10 ml 04/28/21 22:52 Sodium Chloride 0.9% 10 Ml Flush Syringe IV PRN PRN LINE FLUSH Valsartan 80 mg 04/29/21 11:00 04/29/21 21:49 Valsartan 40 Mg Tab PO 80 mg BID ROBERT Administration
[2021-04-30 09:25] LABS: Calcium 9.4 mg/dL (8.4-10.2)
[2021-04-30] MEDS: VALSARTAN 40 MG TAB PO SCH ×2 (10:03→21:09)
[2021-04-30] MEDS: POTASSIUM CHLORIDE ER 10 MEQ TAB PO SCH (10:03)
[2021-04-30] MEDS: ASPIRIN EC 81 MG TAB PO SCH (10:03)
[2021-04-30] MEDS: METOPROLOL TARTRATE 50 MG TAB PO SCH ×2 (10:03→21:10)
[2021-04-30 10:45] LABS: Hepatitis B Surface Antigen Non-Reactive (Negative); Hepatitis C Virus Antibody Reactive (NonReactive)
[2021-04-30 10:56] LABS: Bilirubin,Urine NEG (Negative); Blood,Urine NEG (Negative); Color,Urine Yellow (Yellow); Hyaline Casts,Urine 3 /LPF; Urobilinogen,Urine < 2.0 mg/dL (<2.0)
--- NOTE | 2021-04-30 12:28 | Progress Note ---
Assessment and Plan - Patient Problems (1) CHF exacerbation Current Visit: Yes Status: Acute Plan to address problem: Patient with longstanding hypertension, uncontrolled due to noncompliance with medical therapy, presents with symptoms of heart failure and fluid overload, as well as a systolic heart murmur. Blood pressure is better controlled with systolics of 120-140. Echocardiogram shows a moderate severity, four-chamber cardiomyopathy, left ventricular e jection fraction 35 to 40%. There was also moderate left ventricle hypertrophy and moderate mitral regurgitation. Patient still has persistent edema, will need additional intravenous diuretics while hospitalized.ultimately, ischemic work-up with a Lexiscan when heart failure is optimal resolved and may be done as an outpatient. Subjective Date of service: 04/30/21 Interval history: Patient is comfortable, no new cardiac complaints. On monitor tech, he has a sinus rhythm at 90. Blood pressure is better controlled with systolics of 120-140. Echocardiogram shows a moderate severity, four-chamber cardiomyopathy, left ventricular ejection fraction 35 to 40%. There was also moderate left ventricle hypertrophy and moderate mitral regurgitation. Objective Vital Signs Temp Pulse Resp BP Pulse Ox 04/30/21 10:37 93 04/30/21 08:15 98.8 F 17 149/100 04/30/21 03:31 98.2 F 94 H 16 147/98 92 04/30/21 00:27 99 04/30/21 00:00 75 04/29/21 23:55 97.4 F L 75 16 126/95 91 04/29/21 19:38 98.1 F 85 16 135/98 99 - Physical Examination General: Appears Well, No Apparent Distress HEENT: Positive: PERRL Neck: Positive: neck supple Cardiac: Positive: Reg Rate and Rhythm Lungs: Positive: Decreased Breath Sounds Neuro: Positive: Grossly Intact Abdomen: Positive: Soft Skin: Positive: Clear Extremities: Present: +1 Edema - Labs and Meds Comprehensive Metabolic Panel 04/30/21 Range/Units 08:24 Sodium 135 L (137-145) mmol/L Potassium 4.4 (3.6-5.0) mmol/L Chloride 98.2 (98-107) mmol/L Carbon Dioxide 23 (22-30) mmol/L BUN 35 H (9-20) mg/dL Creatinine 1.8 H (0.8-1.3) mg/dL Glucose 101 H (75-100) mg/dL Calcium 9.4 (8.4-10.2) mg/dL
[2021-04-30] MEDS: MELATONIN 5 MG TAB PO PRN (21:11)
[2021-05-01] MEDS: FUROSEMIDE 40 MG/4 ML INJ IV SCH ×2 (06:40→18:19)
[2021-05-01] MEDS: HEPARIN 5,000 UNIT/1 ML VIAL SUB-Q SCH ×3 (06:40→23:03)
[2021-05-01 07:24] LABS: Calcium 8.7 mg/dL (8.4-10.2)
[2021-05-01] MEDS: METOPROLOL TARTRATE 50 MG TAB PO SCH (09:56)
[2021-05-01] MEDS: ASPIRIN EC 81 MG TAB PO SCH (09:56)
[2021-05-01] MEDS: VALSARTAN 40 MG TAB PO SCH (09:56)
[2021-05-01] MEDS: POTASSIUM CHLORIDE ER 10 MEQ TAB PO SCH (09:56)
--- NOTE | 2021-05-01 11:12 | Progress Note ---
Assessment and Plan - Patient Problems (1) CHF exacerbation Current Visit: Yes Status: Acute (2) Hypertension Current Visit: Yes Status: Acute Subjective Date of service: 05/01/21 Interval history: IMPROVING Objective Vital Signs Temp Pulse Resp BP Pulse Ox 05/01/21 08:26 97.5 F L 81 18 135/95 99 05/01/21 08:16 73 100 05/01/21 04:52 97.8 F 73 16 134/100 100 05/01/21 00:00 93 H 04/30/21 22:00 97 04/30/21 21:10 76 135/100 04/30/21 21:09 76 135/100 04/30/21 20:32 98.4 F 102 H 18 137/95 99 04/30/21 16:27 97.6 F 81 18 129/86 100 04/30/21 12:38 98.6 F 70 15 129/95 100 - Physical Examination General: Appears Well, No Apparent Distress HEENT: Positive: PERRL Neck: Positive: neck supple Neuro: Positive: Grossly Intact Abdomen: Positive: Soft Skin: Positive: Clear Extremities: Present: +1 Edema - Labs and Meds Comprehensive Metabolic Panel 05/01/21 Range/Units 04:22 Sodium 138 (137-145) mmol/L Potassium 4.0 (3.6-5.0) mmol/L Chloride 100.5 (98-107) mmol/L Carbon Dioxide 21 L (22-30) mmol/L BUN 47 H (9-20) mg/dL Creatinine 2.1 H (0.8-1.3) mg/dL Glucose 129 H (75-100) mg/dL Calcium 8.7 (8.4-10.2) mg/dL
--- NOTE | 2021-05-01 11:36 | Progress Note ---
Assessment and Plan Assessment and plan: Acute systolic heart failure Acute hypoxic respiratory failure Moderate pulmonary hypertension Accelerated hypertension Acute kidney injury 04/29/2021. Patient appears to have new diagnosis of CHF. We will check echocardiogram to assess for systolic and diastolic dysfunction. Continue IV diuresis per cardiology recommendations. Cardiology also started metoprolol 50 mg p.o. twice daily and aspirin daily. Diovan 80 mg p.o. twice daily for afterload reduction and blood pressure control. Patient does not appear to have some mild acute kidney injury with a creatinine of 1.4. I suspect patient likely has underlying CKD. Nephrology consulted. Check renal ultrasound. 04/30/2021. Echocardiogram reveals left ventricle moderately dilated with systolic function moderately decreased. Moderate to severe concentric left ventricular hypertrophy with an EF of 35-40%. Moderate pulmonary hypertension noted with RVSP of 45 mmHg. Continue GDMT with aspirin, metoprolol 50 mg p.o. twice daily, Lasix 40 mg IV twice daily and ARB (valsartan 80 mg p.o. twice daily). Nephrology believes patient has underlying chronic kidney disease due to uncontrolled/untreated hypertension. 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 Strict I/O. Await renal serologic work-up. Renal ultrasound reveals right ki dney 13 cm and left kidney 12.1 cm with normal echogenicity. 05/01/2021. Cardiology recommends starting Coreg. We will stop metoprolol. Continue aspirin, Lasix and valsartan. Await serologic work-up for renal failure. Monitor I/Os, avoid potential nephrotoxins and follow-up a.m. labs. Anticipate discharge in the next 1 to 2 days if okay with cardiology. Patient will likely have outpatient ischemic work-up History Interval history: No new issues overnight Hospitalist Physical - Constitutional Vitals: Temp Pulse Resp BP Pulse Ox 97.5 F L 81 18 135/95 99 05/01/21 08:26 05/01/21 08:26 05/01/21 08:26 05/01/21 08:26 05/01/21 08:26 General appearance: Present: no acute distress - EENT Eyes: Present: PERRL, EOM intact ENT: hearing intact, clear oral mucosa, dentition normal - Neck Neck: Present: supple, normal ROM - Respiratory Respiratory effort: normal Respiratory: bilateral: CTA - Cardiovascular Rhythm: regular Heart Sounds: Present: S1 & S2. Absent: gallop, rub - Extremities Extremities: no ischemia, No edema, Full ROM - Abdominal General gastrointestinal: soft, non-tender, non-distended, normal bowel sounds - Integumentary Integumentary: Present: clear, warm, dry - Neurologic Neurologic: CNII-XII intact, moves all extremities HEART Score - HEART Score Troponin: Troponin T 0.059 ng/mL (0.00-0.029) H 04/28/21 19:22 Results - Labs CBC & Chem 7: 04/28/21 19:22 05/01/21 04:22 Labs: Laboratory Last Values WBC 11.2 K/mm3 (4.5-11.0) H 04/28/21: RBC 4.15 M/mm3 (3.65-5.03) 04/28/21 19: Hgb 12.2 gm/dl (11.8-15.2) 04/28/21: Hct 37.8 % (35.5-45.6) 04/28/21: MCV 91 fl (84-94) 04/28/21 19: MCH 30 pg (28-32) 04/28/21: MCHC 32 % (32-34) 04/28/21: RDW 15.2 % (13.2-15.2) 04/28/21: Plt Count 281 K/mm3 (140-440) 04/28/21: Lymph % (Auto) 25.3 % (13.4-35.0) 04/28/21: [place] % (Auto) 11.6 % (0.0-7.3) H 04/28/21 19: Eos % (Auto) 1.1 % (0.0-4.3) 04/28/21: Baso % (Auto) 0.6 % (0.0-1.8) 04/28/21: Lymph # (Auto) 2.8 K/mm3 (1.2-5.4) 04/28/21: [place] # (Auto) 1.3 K/mm3 (0.0-0.8) H 04/28/21 19:22 Eos # (Auto) 0.1 K/mm3 (0.0-0.4) 04/28/21 19:22 Baso # (Auto) 0.1 K/mm3 (0.0-0.1) 04/28/21 19: Seg Neutrophils % 61.4 % (40.0-70.0) 04/28/21 19: Seg Neutrophils # 6.9 K/mm3 (1.8-7.7) 04/28/21 19: PT 13.6 Sec. (12.2-14.9) 04/28/21 19: INR 0.94 (0.87-1.13) 04/28/21 19:22 Sodium 138 mmol/L (137-145) 05/01/21 04:22 Potassium 4.0 mmol/L (3.6-5.0) 05/01/21 04:22 Chloride 100.5 mmol/L (98-107) 05/01/21 04:22 Carbon Dioxide 21 mmol/L (22-30) L 05/01/21 04:22 Anion Gap 21 mmol/L 05/01/21 04:22 BUN 47 mg/dL (9-20) H 05/01/21 04:22 Creatinine 2.1 mg/dL (0.8-1.3) H 05/01/21 04:22 Estimated GFR 39 ml/min 05/01/21 04:22 BUN/Creatinine Ratio 22 % 05/01/21 04:22 Glucose 129 mg/dL (75-100) H 05/01/21 04:22 Calcium 8.7 mg/dL (8.4-10.2) 05/01/21 04:22 Total Bilirubin 0.70 mg/dL (0.1-1.2) 04/28/21 19: AST 25 units/L (5-40) 04/28/21 19: ALT 31 units/L (7-56) 04/28/21 19: Alkaline Phosphatase 108 units/L (35-129) 04/28/21 19: Total Creatine Kinase 141 units/L (55-170) 04/28/21 19:22 CK-MB (CK-2) 4.5 ng/mL (0.0-4.0) H 04/28/21 19: CK-MB (CK-2) Rel Index 3.1 (0-4) 04/28/21 19:22 Troponin T 0.059 ng/mL (0.00-0.029) H 04/28/21 19: NT-Pro-B Natriuret Pep 84786 pg/mL (0-900) H 04/28/21 19: Total Protein 6.8 g/dL (6.3-8.2) 04/28/21 19: Albumin 3.5 g/dL (3.9-5) L 04/28/21: Albumin/Globulin Ratio 1.1 % 04/28/21 19: Triglycerides 65 mg/dL (2-149) 04/28/21: Cholesterol 160 mg/dL (50-199) 04/28/21: LDL Cholesterol Direct 109 mg/dL (50-130) 04/28/21: HDL Cholesterol 42 mg/dL (40-59) 04/28/21: Cholesterol/HDL Ratio 3.80 % 04/28/21: Lipase 28 units/L (13-60) 04/28/21 19: Urine Color Yellow (Yellow) 04/30/21 10:08 Urine Turbidity Clear (Clear) 04/30/21 10:08 Urine pH 5.0 (5.0-7.0) 04/30/21 10:08 Ur Specific [place] 1.009 (1.003-1.030) 04/30/21 10:08 Urine Protein 30 mg/dl mg/dL (Negative) 04/30/21 10:08 Urine Glucose (UA) Neg mg/dL (Negative) 04/30/21 10:08 Urine Ketones Neg mg/dL (Negative) 04/30/21 10:08 Urine Blood Neg (Negative) 04/30/21 10:08 Urine Nitrite Neg (Negative) 04/30/21 10:08 Urine Bilirubin Neg (Negative) 04/30/21 10:08 Urine Urobilinogen < 2.0 mg/dL (<2.0) 04/30/21 10:08 Ur Leukocyte Esterase Neg (Negative) 04/30/21 10:08 Urine WBC (Auto) 1.0 /HPF (0.0-6.0) 04/30/21 10:08 Urine RBC (Auto) 1.0 /HPF (0.0-6.0) 04/30/21 10:08 U Epithel Cells (Auto) < 1.0 /HPF (0-13.0) 04/30/21 10:08 Hyaline Casts 3 /LPF 04/30/21 10:08 Urine Mucus Few /HPF 04/28/21 22:30 Hepatitis A IgM Ab Non-reactive (NonReactive) 04/30/21 08:24 Hep Bs Antigen Non-reactive (Negative) 04/30/21 08:24 Hep B Core IgM Ab Non-reactive (NonReactive) 04/30/21 08:24 Hepatitis C Antibody Reactive (NonReactive) A 04/30/21 08:24 Patel/IV: Voiding Method Toilet Active Medications - Current Medications Current Medications: Generic Name Dose Route Start Last Admin Trade Name Freq PRN Reason Stop Dose Admin Acetaminophen 650 mg 04/28/21 22:52 Acetaminophen 325 Mg Tab PO Q4H PRN Pain MILD(1-3)/Fever >100.5/MICHEL Aspirin 81 mg 04/29/21 11:00 05/01/21 09:56 Aspirin Ec 81 Mg Tab PO 81 mg QDAY ROBERT Administration Furosemide 40 mg 04/29/21 06:00 05/01/21 06:40 Furosemide 40 Mg/4 Ml Inj IV 40 mg BID@0600,1800 ROBERT Administration Heparin Sodium (Porcine) 5,000 unit 04/29/21 06:00 05/01/21 06:40 Heparin 5,000 Unit/1 Ml Vial SUB-Q 5,000 unit Q8HR ROBERT Administration Magnesium Hydroxide 30 ml 04/28/21 22:52 Magnesium Hydroxide (Mom) Oral Liqd Udc PO Q4H PRN Constipation Melatonin 5 mg 04/30/21 16:43 04/30/21 21:11 Melatonin 5 Mg Tab PO 5 mg QHS PRN Administration Sleep Metoprolol Tartrate 50 mg 04/29/21 10:00 05/01/21 09:56 Metoprolol Tartrate 50 Mg Tab PO 50 mg BID ROBERT Administration Morphine Sulfate 2 mg 04/28/21 22:52 Morphine 2 Mg/1 Ml Inj IV Q4H PRN Pain, Moderate (4-6) Morphine Sulfate 4 mg 04/28/21 22:52 Morphine 4 Mg/1 Ml Inj IV Q4H PRN Pain , Severe (7-10) Ondansetron HCl 4 mg 04/28/21 22:52 Ondansetron 4 Mg/2 Ml Inj IV Q8H PRN Nausea And Vomiting Potassium Chloride 10 meq 04/29/21 10:00 05/01/21 09:56 Potassium Chloride Er 10 Meq Tab PO 10 meq QDAY ROBERT Administration Sodium Chloride 10 ml 04/29/21 10:00 05/01/21 09:57 Sodium Chloride 0.9% 10 Ml Flush Syringe IV 10 ml BID ROBERT Administration Sodium Chloride 10 ml 04/28/21 22:52 Sodium Chloride 0.9% 10 Ml Flush Syringe IV PRN PRN LINE FLUSH Valsartan 80 mg 04/29/21 11:00 05/01/21 09:56 Valsartan 40 Mg Tab PO 80 mg BID ROBERT Administration
--- NOTE | 2021-05-01 12:44 | Progress Note ---
Assessment and Plan Impression * Acute kidney injury vs underlying CKD --Renal u/s: right 13cm, left 12.1cm; nml echogenicity * HFrEF * Pleural effusions * Hypertension Plan: * Note gradual decline in renal function since admission - no acute indication for renal replacement therapy * Continue IV Lasix 40mg BID * Will stop ARB in light of increasing SCr. Resume once renal function is stable * May need to reduce frequency of Lasix to daily * Continue antiHTN medications * Strict I/O * Await pending serologic work up * Dose medications for renal function * Avoid potential nephrotoxins * AM labs Subjective Date of service: 05/01/21 Interval history: Patient has no complaints. Reports orthopnea. Objective - Vital Signs Vital signs: Vital Signs - 12hr 05/01/21 05/01/21 05/01/21 04:52 08:16 08:26 Temperature 97.8 F 97.5 F L Pulse Rate 73 73 81 Respiratory 16 18 Rate Blood Pressure 134/100 135/95 O2 Sat by Pulse 100 100 99 Oximetry - General Appearance General appearance: well-developed, well-nourished EENT: ATNC Respiratory: Present: Decreased Breath Sounds Cardiology: regular, S3 Gastrointestinal: normal Integumentary: no rash, warm and dry Musculoskeletal: other (1+ pedal edema) Psychiatric: cooperative - Lab 04/28/21 19:22 05/01/21 04:22 Most recent lab results Calcium 8.7 mg/dL (8.4-10.2) 05/01/21 04:22 Medications & Allergies - Medications Allergies/Adverse Reactions: Allergies No Known Allergies Allergy (Unverified 04/28/21 18:02) Active Medications: Generic Name Dose Route Start Last Admin Trade Name Freq PRN Reason Stop Dose Admin Acetaminophen 650 mg 04/28/21 22:52 Acetaminophen 325 Mg Tab PO Q4H PRN Pain MILD(1-3)/Fever >100.5/MICHEL Aspirin 81 mg 04/29/21 11:00 05/01/21 09:56 Aspirin Ec 81 Mg Tab PO 81 mg QDAY ROBERT Administration Carvedilol 12.5 mg 05/01/21 22:00 Carvedilol 12.5 Mg Tab PO BID ROBERT Furosemide 40 mg 04/29/21 06:00 05/01/21 06:40 Furosemide 40 Mg/4 Ml Inj IV 40 mg BID@0600,1800 ROBERT Administration Heparin Sodium (Porcine) 5,000 unit 04/29/21 06:00 05/01/21 06:40 Heparin 5,000 Unit/1 Ml Vial SUB-Q 5,000 unit Q8HR ROBERT Administration Magnesium Hydroxide 30 ml 04/28/21 22:52 Magnesium Hydroxide (Mom) Oral Liqd Udc PO Q4H PRN Constipation Melatonin 5 mg 04/30/21 16:43 04/30/21 21:11 Melatonin 5 Mg Tab PO 5 mg QHS PRN Administration Sleep Morphine Sulfate 2 mg 04/28/21 22:52 Morphine 2 Mg/1 Ml Inj IV Q4H PRN Pain, Moderate (4-6) Morphine Sulfate 4 mg 04/28/21 22:52 Morphine 4 Mg/1 Ml Inj IV Q4H PRN Pain , Severe (7-10) Ondansetron HCl 4 mg 04/28/21 22:52 Ondansetron 4 Mg/2 Ml Inj IV Q8H PRN Nausea And Vomiting Potassium Chloride 10 meq 04/29/21 10:00 05/01/21 09:56 Potassium Chloride Er 10 Meq Tab PO 10 meq QDAY ROBERT Administration Sodium Chloride 10 ml 04/29/21 10:00 05/01/21 09:57 Sodium Chloride 0.9% 10 Ml Flush Syringe IV 10 ml BID ROBERT Administration Sodium Chloride 10 ml 04/28/21 22:52 Sodium Chloride 0.9% 10 Ml Flush Syringe IV PRN PRN LINE FLUSH Valsartan 80 mg 04/29/21 11:00 05/01/21 09:56 Valsartan 40 Mg Tab PO 80 mg BID ROBERT Administration
[2021-05-01] MEDS: carvediloL 12.5 MG TAB PO SCH (23:02)
[2021-05-01] MEDS: MELATONIN 5 MG TAB PO PRN (23:07)
[2021-05-02] MEDS: FUROSEMIDE 40 MG/4 ML INJ IV SCH ×2 (06:52→18:00)
[2021-05-02] MEDS: HEPARIN 5,000 UNIT/1 ML VIAL SUB-Q SCH ×3 (06:52→21:06)
--- NOTE | 2021-05-02 08:35 | Progress Note ---
Assessment and Plan Assessment and plan: Acute systolic heart failure Acute hypoxic respiratory failure Moderate pulmonary hypertension Accelerated hypertension Acute kidney injury 04/29/2021. Patient appears to have new diagnosis of CHF. We will check echocardiogram to assess for systolic and diastolic dysfunction. Continue IV diuresis per cardiology recommendations. Cardiology also started metoprolol 50 mg p.o. twice daily and aspirin daily. Diovan 80 mg p.o. twice daily for afterload reduction and blood pressure control. Patient does not appear to have some mild acute kidney injury with a creatinine of 1.4. I suspect patient likely has underlying CKD. Nephrology consulted. Check renal ultrasound. 04/30/2021. Echocardiogram reveals left ventricle moderately dilated with systolic function moderately decreased. Moderate to severe concentric left ventricular hypertrophy with an EF of 35-40%. Moderate pulmonary hypertension noted with RVSP of 45 mmHg. Continue GDMT with aspirin, metoprolol 50 mg p.o. twice daily, Lasix 40 mg IV twice daily and ARB (valsartan 80 mg p.o. twice daily). Nephrology believes patient has underlying chronic kidney disease due to uncontrolled/untreated hypertension. However, no need for AUTOMATED WEAVER at this time. Strict I/O. Await renal serologic work-up. Renal ultrasound reveals right ki dney 13 cm and left kidney 12.1 cm with normal echogenicity. 05/01/2021. Cardiology recommends starting Coreg. We will stop metoprolol. Continue aspirin, Lasix and valsartan. Await serologic work-up for renal failure. Monitor I/Os, avoid potential nephrotoxins and follow-up a.m. labs. Anticipate discharge in the next 1 to 2 days if okay with cardiology. Patient will likely have outpatient ischemic work-up. 05/02/2021. Patient with gradual decline in renal function since admission. ARB discontinued. Continue Lasix 40 mg IV twice daily per nephrology recommendations. Await serologic work-up for kidney disease. Avoid potential nephrotoxins. History Interval history: No new issues overnight Hospitalist Physical - Constitutional Vitals: Temp Pulse Resp BP Pulse Ox 97.5 F L 69 20 126/91 95 05/02/21 05:48 05/02/21 05:48 05/02/21 05:48 05/02/21 05:48 05/02/21 05:48 General appearance: Present: no acute distress - EENT Eyes: Present: PERRL, EOM intact ENT: hearing intact, clear oral mucosa, dentition normal - Neck Neck: Present: supple, normal ROM - Respiratory Respiratory effort: normal Respiratory: bilateral: CTA - Cardiovascular Rhythm: regular Heart Sounds: Present: S1 & S2. Absent: gallop, rub - Extremities Extremities: no ischemia, No edema, Full ROM - Abdominal General gastrointestinal: soft, non-tender, non-distended, normal bowel sounds - Integumentary Integumentary: Present: clear, warm, dry - Neurologic Neurologic: CNII-XII intact, moves all extremities HEART Score - HEART Score Troponin: Troponin T 0.059 ng/mL (0.00-0.029) H 04/28/21 19: Results - Labs CBC & Chem 7: 04/28/21 19:22 05/01/21 04:22 Labs: Laboratory Last Values WBC 11.2 K/mm3 (4.5-11.0) H 04/28/21: RBC 4.15 M/mm3 (3.65-5.03) 04/28/21 19: Hgb 12.2 gm/dl (11.8-15.2) 04/28/21: Hct 37.8 % (35.5-45.6) 04/28/21 19: MCV 91 fl (84-94) 04/28/21: MCH 30 pg (28-32) 04/28/21: MCHC 32 % (32-34) 04/28/21: RDW 15.2 % (13.2-15.2) 04/28/21: Plt Count 281 K/mm3 (140-440) 04/28/21 19: Lymph % (Auto) 25.3 % (13.4-35.0) 04/28/21: [place] % (Auto) 11.6 % (0.0-7.3) H 04/28/21: Eos % (Auto) 1.1 % (0.0-4.3) 04/28/21: Baso % (Auto) 0.6 % (0.0-1.8) 04/28/21: Lymph # (Auto) 2.8 K/mm3 (1.2-5.4) 01/19/22 19:22 [place] # (Auto) 1.3 K/mm3 (0.0-0.8) H 04/28/21 19:22 Eos # (Auto) 0.1 K/mm3 (0.0-0.4) 04/28/21 19:22 Baso # (Auto) 0.1 K/mm3 (0.0-0.1) 04/28/21 19: Seg Neutrophils % 61.4 % (40.0-70.0) 04/28/21 19: Seg Neutrophils # 6.9 K/mm3 (1.8-7.7) 04/28/21 19: PT 13.6 Sec. (12.2-14.9) 04/28/21 19: INR 0.94 (0.87-1.13) 04/28/21 19: Sodium 138 mmol/L (137-145) 05/01/21 04:22 Potassium 4.0 mmol/L (3.6-5.0) 05/01/21 04:22 Chloride 100.5 mmol/L (98-107) 05/01/21 04:22 Carbon Dioxide 21 mmol/L (22-30) L 05/01/21 04:22 Anion Gap 21 mmol/L 05/01/21 04:22 BUN 47 mg/dL (9-20) H 05/01/21 04:22 Creatinine 2.1 mg/dL (0.8-1.3) H 05/01/21 04:22 Estimated GFR 39 ml/min 05/01/21 04:22 BUN/Creatinine Ratio 22 % 05/01/21 04:22 Glucose 129 mg/dL (75-100) H 05/01/21 04:22 Calcium 8.7 mg/dL (8.4-10.2) 05/01/21 04:22 Total Bilirubin 0.70 mg/dL (0.1-1.2) 04/28/21 19: AST 25 units/L (5-40) 04/28/21 19: ALT 31 units/L (7-56) 04/28/21 19: Alkaline Phosphatase 108 units/L (35-129) 04/28/21 19: Total Creatine Kinase 141 units/L (55-170) 04/28/21 19: CK-MB (CK-2) 4.5 ng/mL (0.0-4.0) H 04/28/21 19: CK-MB (CK-2) Rel Index 3.1 (0-4) 04/28/21: Troponin T 0.059 ng/mL (0.00-0.029) H 04/28/21: NT-Pro-B Natriuret Pep 75559 pg/mL (0-900) H 04/28/21: Total Protein 6.8 g/dL (6.3-8.2) 04/28/21: Albumin 3.5 g/dL (3.9-5) L 04/28/21: Albumin/Globulin Ratio 1.1 % 04/28/21: Triglycerides 65 mg/dL (2-149) 04/28/21: Cholesterol 160 mg/dL (50-199) 04/28/21: LDL Cholesterol Direct 109 mg/dL (50-130) 04/28/21: HDL Cholesterol 42 mg/dL (40-59) 04/28/21 Cholesterol/HDL Ratio 3.80 % 04/28/21: Lipase 28 units/L (13-60) 04/28/21 19: Urine Color Yellow (Yellow) 04/30/21 10:08 Urine Turbidity Clear (Clear) 04/30/21 10:08 Urine pH 5.0 (5.0-7.0) 04/30/21 10:08 Ur Specific [place] 1.009 (1.003-1.030) 04/30/21 10:08 Urine Protein 30 mg/dl mg/dL (Negative) 04/30/21 10:08 Urine Glucose (UA) Neg mg/dL (Negative) 04/30/21 10:08 Urine Ketones Neg mg/dL (Negative) 04/30/21 10:08 Urine Blood Neg (Negative) 04/30/21 10:08 Urine Nitrite Neg (Negative) 04/30/21 10:08 Urine Bilirubin Neg (Negative) 04/30/21 10:08 Urine Urobilinogen < 2.0 mg/dL (<2.0) 04/30/21 10:08 Ur Leukocyte Esterase Neg (Negative) 04/30/21 10:08 Urine WBC (Auto) 1.0 /HPF (0.0-6.0) 04/30/21 10:08 Urine RBC (Auto) 1.0 /HPF (0.0-6.0) 04/30/21 10:08 U Epithel Cells (Auto) < 1.0 /HPF (0-13.0) 04/30/21 10:08 Hyaline Casts 3 /LPF 04/30/21 10:08 Urine Mucus Few /HPF 04/28/21 22:30 Hepatitis A IgM Ab Non-reactive (NonReactive) 04/30/21 08:24 Hep Bs Antigen Non-reactive (Negative) 04/30/21 08:24 Hep B Core IgM Ab Non-reactive (NonReactive) 04/30/21 08:24 Hepatitis C Antibody Reactive (NonReactive) A 04/30/21 08:24 Patel/IV: Voiding Method Toilet Active Medications - Current Medications Current Medications: Generic Name Dose Route Start Last Admin Trade Name Freq PRN Reason Stop Dose Admin Acetaminophen 650 mg 04/28/21 22:52 Acetaminophen 325 Mg Tab PO Q4H PRN Pain MILD(1-3)/Fever >100.5/MICHEL Aspirin 81 mg 04/29/21 11:00 05/01/21 09:56 Aspirin Ec 81 Mg Tab PO 81 mg QDAY ROBERT Administration Carvedilol 12.5 mg 05/01/21 22:00 05/01/21 23:02 Carvedilol 12.5 Mg Tab PO 12.5 mg BID ROBERT Administration Furosemide 40 mg 04/29/21 06:00 05/02/21 06:52 Furosemide 40 Mg/4 Ml Inj IV 40 mg BID@0600,1800 ROBERT Administration Heparin Sodium (Porcine) 5,000 unit 04/29/21 06:00 05/02/21 06:52 Heparin 5,000 Unit/1 Ml Vial SUB-Q 5,000 unit Q8HR ROBERT Administration Magnesium Hydroxide 30 ml 04/28/21 22:52 Magnesium Hydroxide (Mom) Oral Liqd Udc PO Q4H PRN Constipation Melatonin 5 mg 04/30/21 16:43 05/01/21 23:07 Melatonin 5 Mg Tab PO 5 mg QHS PRN Administration Sleep Morphine Sulfate 2 mg 04/28/21 22:52 Morphine 2 Mg/1 Ml Inj IV Q4H PRN Pain, Moderate (4-6) Morphine Sulfate 4 mg 04/28/21 22:52 Morphine 4 Mg/1 Ml Inj IV Q4H PRN Pain , Severe (7-10) Ondansetron HCl 4 mg 04/28/21 22:52 Ondansetron 4 Mg/2 Ml Inj IV Q8H PRN Nausea And Vomiting Potassium Chloride 10 meq 04/29/21 10:00 05/01/21 09:56 Potassium Chloride Er 10 Meq Tab PO 10 meq QDAY ROBERT Administration Sodium Chloride 10 ml 04/29/21 10:00 05/01/21 23:04 Sodium Chloride 0.9% 10 Ml Flush Syringe IV 10 ml BID ROBERT Administration Sodium Chloride 10 ml 04/28/21 22:52 Sodium Chloride 0.9% 10 Ml Flush Syringe IV PRN PRN LINE FLUSH
[2021-05-02 09:02] LABS: Calcium 9.2 mg/dL (8.4-10.2)
[2021-05-02] MEDS: POTASSIUM CHLORIDE ER 10 MEQ TAB PO SCH (10:57)
[2021-05-02] MEDS: carvediloL 12.5 MG TAB PO SCH ×2 (10:57→21:06)
[2021-05-02] MEDS: ASPIRIN EC 81 MG TAB PO SCH (10:57)
--- NOTE | 2021-05-02 12:53 | Progress Note ---
Assessment and Plan - Patient Problems (1) CHF exacerbation Current Visit: Yes Status: Acute (2) Hypertension Current Visit: Yes Status: Acute Subjective Date of service: 05/02/21 Interval history: IMPROVING Objective Vital Signs Temp Pulse Resp BP Pulse Ox 05/02/21 07:48 98.2 F 75 18 140/96 98 05/02/21 05:48 97.5 F L 69 20 126/91 95 05/02/21 02:00 76 05/01/21 23:46 98.0 F 18 05/01/21 23:45 96 H 134/92 99 05/01/21 23:02 81 133/98 05/01/21 20:01 98.3 F 81 20 133/98 97 05/01/21 20:00 97 05/01/21 16:45 97.4 F L 75 18 125/93 93 - Physical Examination General: Appears Well, No Apparent Distress HEENT: Positive: PERRL Neck: Positive: neck supple Neuro: Positive: Grossly Intact Abdomen: Positive: Soft Skin: Positive: Clear Extremities: Present: +1 Edema - Labs and Meds Comprehensive Metabolic Panel 05/02/21 Range/Units 08:01 Sodium 137 (137-145) mmol/L Potassium 4.4 (3.6-5.0) mmol/L Chloride 100.6 (98-107) mmol/L Carbon Dioxide 25 (22-30) mmol/L BUN 54 H (9-20) mg/dL Creatinine 2.2 H (0.8-1.3) mg/dL Glucose 104 H (75-100) mg/dL Calcium 9.2 (8.4-10.2) mg/dL
--- NOTE | 2021-05-02 14:56 | Progress Note ---
Assessment and Plan Impression * Acute kidney injury vs underlying CKD --Renal u/s: right 13cm, left 12.1cm; nml echogenicity * HFrEF --TTE: LVEF 35-40%; moderate to severe concentric LVH (Apr 28) * Pleural effusion * Hypertension * Hepatitis C Plan: * SCr is stable c/w yesterday * UA with only 30+protein. UPCR ordered at admission; reordered again today. W ill follow up. * Continue IV Lasix 40mg BID * Hold ARB while diuresing with IV lasix. Resume once renal function is stable * Continue antiHTN medications * Strict I/O * Await pending serologic work up * Dose medications for renal function * Avoid potential nephrotoxins * AM labs Subjective Date of service: 05/02/21 Interval history: Patient has no complaints. Reports orthopnea improved. Objective - Vital Signs Vital signs: Vital Signs - 12hr 05/02/21 05/02/21 05/02/21 05:48 07:48 10:00 Temperature 97.5 F L 98.2 F Pulse Rate 69 75 Respiratory 20 18 Rate Blood Pressure 126/91 140/96 O2 Sat by Pulse 95 98 98 Oximetry 05/02/21 12:06 Temperature 98.0 F Pulse Rate 77 Respiratory 18 Rate Blood Pressure 128/86 O2 Sat by Pulse 98 Oximetry - General Appearance General appearance: well-developed, well-nourished EENT: ATNC Respiratory: Present: Clear to Ascultation Cardiology: regular, S1S2 Gastrointestinal: normal, no tenderness, no distended Integumentary: no rash, warm and dry Neurologic: no focal deficit, alert and oriented x3 Musculoskeletal: other (1-2+edema) Psychiatric: mood/affect appropriate, cooperative - Lab 04/28/21 19:22 05/02/21 08:01 Most recent lab results Calcium 9.2 mg/dL (8.4-10.2) 05/02/21 08:01 Medications & Allergies - Medications Allergies/Adverse Reactions: Allergies No Known Allergies Allergy (Unverified 04/28/21 18:02) Active Medications: Generic Name Dose Route Start Last Admin Trade Name Freq PRN Reason Stop Dose Admin Acetaminophen 650 mg 04/28/21 22:52 Acetaminophen 325 Mg Tab PO Q4H PRN Pain MILD(1-3)/Fever >100.5/MICHEL Aspirin 81 mg 04/29/21 11:00 05/02/21 10:57 Aspirin Ec 81 Mg Tab PO 81 mg QDAY ROBERT Administration Carvedilol 12.5 mg 05/01/21 22:00 05/02/21 10:57 Carvedilol 12.5 Mg Tab PO 12.5 mg BID ROBERT Administration Furosemide 40 mg 04/29/21 06:00 05/02/21 06:52 Furosemide 40 Mg/4 Ml Inj IV 40 mg BID@0600,1800 ROBERT Administration Heparin Sodium (Porcine) 5,000 unit 04/29/21 06:00 05/02/21 14:00 Heparin 5,000 Unit/1 Ml Vial SUB-Q 5,000 unit Q8HR ROBERT Administration Magnesium Hydroxide 30 ml 04/28/21 22:52 Magnesium Hydroxide (Mom) Oral Liqd Udc PO Q4H PRN Constipation Melatonin 5 mg 04/30/21 16:43 05/01/21 23:07 Melatonin 5 Mg Tab PO 5 mg QHS PRN Administration Sleep Morphine Sulfate 2 mg 04/28/21 22:52 Morphine 2 Mg/1 Ml Inj IV Q4H PRN Pain, Moderate (4-6) Morphine Sulfate 4 mg 04/28/21 22:52 Morphine 4 Mg/1 Ml Inj IV Q4H PRN Pain , Severe (7-10) Ondansetron HCl 4 mg 04/28/21 22:52 Ondansetron 4 Mg/2 Ml Inj IV Q8H PRN Nausea And Vomiting Potassium Chloride 10 meq 04/29/21 10:00 05/02/21 10:57 Potassium Chloride Er 10 Meq Tab PO 10 meq QDAY ROBERT Administration Sodium Chloride 10 ml 04/29/21 10:00 05/02/21 10:59 Sodium Chloride 0.9% 10 Ml Flush Syringe IV 10 ml BID ROBERT Administration Sodium Chloride 10 ml 04/28/21 22:52 Sodium Chloride 0.9% 10 Ml Flush Syringe IV PRN PRN LINE FLUSH
[2021-05-02] MEDS: MELATONIN 5 MG TAB PO PRN (21:14)
[2021-05-03] MEDS: HEPARIN 5,000 UNIT/1 ML VIAL SUB-Q SCH ×3 (05:04→21:08)
[2021-05-03] MEDS: FUROSEMIDE 40 MG/4 ML INJ IV SCH ×2 (05:04→19:00)
[2021-05-03 07:59] LABS: Basophils % (Auto) 0.3 % (0.0-1.8); Eosinophils # (Auto) 0.1 K/mm3 (0.0-0.4); Eosinophils % (Auto) 0.7 % (0.0-4.3); Hematocrit 34.4 % (35.5-45.6); Hemoglobin 11.1 gm/dl (11.8-15.2); Lymphocytes # (Auto) 2.5 K/mm3 (1.2-5.4); Lymphocytes % (Auto) 29.1 % (13.4-35.0); Mean Corpuscular HGB Conc 32 % (32-34); Mean Corpuscular Volume 90 fl (84-94); Monocytes % (Auto) 11.7 % (0.0-7.3); Platelet Count 205 K/mm3 (140-440); Red Blood Count 3.82 M/mm3 (3.65-5.03); Red Cell Distribution Width 15.5 % (13.2-15.2)
[2021-05-03 08:18] LABS: Calcium 8.8 mg/dL (8.4-10.2)
--- NOTE | 2021-05-03 08:24 | Progress Note ---
Assessment and Plan Assessment and plan: Acute systolic heart failure Acute hypoxic respiratory failure Moderate pulmonary hypertension Accelerated hypertension Acute kidney injury 04/29/2021. Patient appears to have new diagnosis of CHF. We will check echocardiogram to assess for systolic and diastolic dysfunction. Continue IV diuresis per cardiology recommendations. Cardiology also started metoprolol 50 mg p.o. twice daily and aspirin daily. Diovan 80 mg p.o. twice daily for afterload reduction and blood pressure control. Patient does not appear to have some mild acute kidney injury with a creatinine of 1.4. I suspect patient likely has underlying CKD. Nephrology consulted. Check renal ultrasound. 04/30/2021. Echocardiogram reveals left ventricle moderately dilated with systolic function moderately decreased. Moderate to severe concentric left ventricular hypertrophy with an EF of 35-40%. Moderate pulmonary hypertension noted with RVSP of 45 mmHg. Continue GDMT with aspirin, metoprolol 50 mg p.o. twice daily, Lasix 40 mg IV twice daily and ARB (valsartan 80 mg p.o. twice daily). Nephrology believes patient has underlying chronic kidney disease due to uncontrolled/untreated hypertension. However, no need for RISK MANAGEMENT DIRECTOR at this time. Strict I/O. Await renal serologic work-up. Renal ultrasound reveals right ki dney 13 cm and left kidney 12.1 cm with normal echogenicity. 05/01/2021. Cardiology recommends starting Coreg. We will stop metoprolol. Continue aspirin, Lasix and valsartan. Await serologic work-up for renal failure. Monitor I/Os, avoid potential nephrotoxins and follow-up a.m. labs. Anticipate discharge in the next 1 to 2 days if okay with cardiology. Patient will likely have outpatient ischemic work-up. 05/02/2021. Patient with gradual decline in renal function since admission. ARB discontinued. Continue Lasix 40 mg IV twice daily per nephrology recommendations. Await serologic work-up for kidney disease. Avoid potential nephrotoxins. 05/03/2021. Creatinine is slightly improved to 1.9 today. Continue Lasix 40 mg IV twice daily per nephrology recommendations. Await serologic work-up for kidney disease. Avoid potential nephrotoxins. ARB discontinued. Strict I/Os. Continue antiHTN medications. History Interval history: No new issues overnight Hospitalist Physical - Constitutional Vitals: Temp Pulse Resp BP Pulse Ox 98.2 F 63 18 129/93 98 05/03/21 07:27 05/03/21 07:27 05/03/21 07:27 05/03/21 07:27 05/03/21 07:27 General appearance: Present: no acute distress - EENT Eyes: Present: PERRL, EOM intact ENT: hearing intact, clear oral mucosa, dentition normal - Neck Neck: Present: supple, normal ROM - Respiratory Respiratory effort: normal Respiratory: bilateral: CTA - Cardiovascular Rhythm: regular Heart Sounds: Present: S1 & S2. Absent: gallop, rub - Extremities Extremities: no ischemia, No edema, Full ROM - Abdominal General gastrointestinal: soft, non-tender, non-distended, normal bowel sounds - Integumentary Integumentary: Present: clear, warm, dry - Neurologic Neurologic: CNII-XII intact, moves all extremities HEART Score - HEART Score Troponin: Troponin T 0.059 ng/mL (0.00-0.029) H 04/28/21 19:22 Results - Labs CBC & Chem 7: 05/03/21 06:58 05/03/21 06:58 Labs: Laboratory Last Values WBC 8.8 K/mm3 (4.5-11.0) 05/03/21 06:58 RBC 3.82 M/mm3 (3.65-5.03) 05/03/21 06:58 Hgb 11.1 gm/dl (11.8-15.2) L 05/03/21 06:58 Hct 34.4 % (35.5-45.6) L 05/03/21 06:58 MCV 90 fl (84-94) 05/03/21 06:58 MCH 29 pg (28-32) 05/03/21 06:58 MCHC 32 % (32-34) 05/03/21 06:58 RDW 15.5 % (13.2-15.2) H 05/03/21 06:58 Plt Count 205 K/mm3 (140-440) 05/03/21 06:58 Lymph % (Auto) 29.1 % (13.4-35.0) 05/03/21 06:58 Nolan % (Auto) 11.7 % (0.0-7.3) H 05/03/21 06:58 Eos % (Auto) 0.7 % (0.0-4.3) 05/03/21 06:58 Baso % (Auto) 0.3 % (0.0-1.8) 05/03/21 06:58 Lymph # (Auto) 2.5 K/mm3 (1.2-5.4) 05/03/21 06:58 Nolan # (Auto) 1.0 K/mm3 (0.0-0.8) H 05/03/21 06:58 Eos # (Auto) 0.1 K/mm3 (0.0-0.4) 05/03/21 06:58 Baso # (Auto) 0.0 K/mm3 (0.0-0.1) 05/03/21 06:58 Seg Neutrophils % 58.2 % (40.0-70.0) 05/03/21 06:58 Seg Neutrophils # 5.1 K/mm3 (1.8-7.7) 05/03/21 06:58 PT 13.6 Sec. (12.2-14.9) 04/28/21 19:22 INR 0.94 (0.87-1.13) 04/28/21 19:22 Sodium 143 mmol/L (137-145) 05/03/21 06:58 Potassium 4.1 mmol/L (3.6-5.0) 05/03/21 06:58 Chloride 104.4 mmol/L (98-107) 05/03/21 06:58 Carbon Dioxide 26 mmol/L (22-30) 05/03/21 06:58 Anion Gap 17 mmol/L 05/03/21 06:58 BUN 52 mg/dL (9-20) H 05/03/21 06:58 Creatinine 1.9 mg/dL (0.8-1.3) H 05/03/21 06:58 Estimated GFR 43 ml/min 05/03/21 06:58 BUN/Creatinine Ratio 27 % 05/03/21 06:58 Glucose 95 mg/dL (75-100) 05/03/21 06:58 Calcium 8.8 mg/dL (8.4-10.2) 05/03/21 06:58 Total Bilirubin 0.70 mg/dL (0.1-1.2) 04/28/21 19:22 AST 25 units/L (5-40) 04/28/21 19:22 ALT 31 units/L (7-56) 04/28/21 19: Alkaline Phosphatase 108 units/L (35-129) 04/28/21 19: Total Creatine Kinase 141 units/L (55-170) 04/28/21 19: CK-MB (CK-2) 4.5 ng/mL (0.0-4.0) H 04/28/21 19: CK-MB (CK-2) Rel Index 3.1 (0-4) 04/28/21: Troponin T 0.059 ng/mL (0.00-0.029) H 04/28/21: NT-Pro-B Natriuret Pep 51385 pg/mL (0-900) H 04/28/21: Total Protein 6.8 g/dL (6.3-8.2) 04/28/21: Albumin 3.5 g/dL (3.9-5) L 04/28/21: Albumin/Globulin Ratio 1.1 % 04/28/21 19: Triglycerides 65 mg/dL (2-149) 04/28/21 19: Cholesterol 160 mg/dL (50-199) 04/28/21: LDL Cholesterol Direct 109 mg/dL (50-130) 04/28/21: HDL Cholesterol 42 mg/dL (40-59) 04/28/21: Cholesterol/HDL Ratio 3.80 % 04/28/21: Lipase 28 units/L (13-60) 04/28/21 19: Urine Color Yellow (Yellow) 04/30/21 10:08 Urine Turbidity Clear (Clear) 04/30/21 10:08 Urine pH 5.0 (5.0-7.0) 04/30/21 10:08 Ur Specific [place] 1.009 (1.003-1.030) 04/30/21 10:08 Urine Protein 30 mg/dl mg/dL (Negative) 04/30/21 10:08 Urine Glucose (UA) Neg mg/dL (Negative) 04/30/21 10:08 Urine Ketones Neg mg/dL (Negative) 04/30/21 10:08 Urine Blood Neg (Negative) 04/30/21 10:08 Urine Nitrite Neg (Negative) 04/30/21 10:08 Urine Bilirubin Neg (Negative) 04/30/21 10:08 Urine Urobilinogen < 2.0 mg/dL (<2.0) 04/30/21 10:08 Ur Leukocyte Esterase Neg (Negative) 04/30/21 10:08 Urine WBC (Auto) 1.0 /HPF (0.0-6.0) 04/30/21 10:08 Urine RBC (Auto) 1.0 /HPF (0.0-6.0) 04/30/21 10:08 U Epithel Cells (Auto) < 1.0 /HPF (0-13.0) 04/30/21 10:08 Hyaline Casts 3 /LPF 04/30/21 10:08 Urine Mucus Few /HPF 04/28/21 22:30 Hepatitis A IgM Ab Non-reactive (NonReactive) 04/30/21 08:24 Hep Bs Antigen Non-reactive (Negative) 04/30/21 08:24 Hep B Core IgM Ab Non-reactive (NonReactive) 04/30/21 08:24 Hepatitis C Antibody Reactive (NonReactive) A 04/30/21 08:24 Patel/IV: Voiding Method Toilet Active Medications - Current Medications Current Medications: Generic Name Dose Route Start Last Admin Trade Name Freq PRN Reason Stop Dose Admin Acetaminophen 650 mg 04/28/21 22:52 Acetaminophen 325 Mg Tab PO Q4H PRN Pain MILD(1-3)/Fever >100.5/MICHEL Aspirin 81 mg 04/29/21 11:00 05/02/21 10:57 Aspirin Ec 81 Mg Tab PO 81 mg QDAY ROBERT Administration Carvedilol 12.5 mg 05/01/21 22:00 05/02/21 21:06 Carvedilol 12.5 Mg Tab PO 12.5 mg BID ROBERT Administration Furosemide 40 mg 04/29/21 06:00 05/03/21 05:04 Furosemide 40 Mg/4 Ml Inj IV 40 mg BID@0600,1800 ROBERT Administration Heparin Sodium (Porcine) 5,000 unit 04/29/21 06:00 05/03/21 05:04 Heparin 5,000 Unit/1 Ml Vial SUB-Q 5,000 unit Q8HR ROBERT Administration Magnesium Hydroxide 30 ml 04/28/21 22:52 Magnesium Hydroxide (Mom) Oral Liqd Udc PO Q4H PRN Constipation Melatonin 5 mg 04/30/21 16:43 05/02/21 21:14 Melatonin 5 Mg Tab PO 5 mg QHS PRN Administration Sleep Morphine Sulfate 2 mg 04/28/21 22:52 Morphine 2 Mg/1 Ml Inj IV Q4H PRN Pain, Moderate (4-6) Morphine Sulfate 4 mg 04/28/21 22:52 Morphine 4 Mg/1 Ml Inj IV Q4H PRN Pain , Severe (7-10) Ondansetron HCl 4 mg 04/28/21 22:52 Ondansetron 4 Mg/2 Ml Inj IV Q8H PRN Nausea And Vomiting Potassium Chloride 10 meq 04/29/21 10:00 05/02/21 10:57 Potassium Chloride Er 10 Meq Tab PO 10 meq QDAY ROBERT Administration Sodium Chloride 10 ml 04/29/21 10:00 05/02/21 10:59 Sodium Chloride 0.9% 10 Ml Flush Syringe IV 10 ml BID ROBERT Administration Sodium Chloride 10 ml 04/28/21 22:52 05/03/21 05:05 Sodium Chloride 0.9% 10 Ml Flush Syringe IV 10 ml PRN PRN Administration LINE FLUSH
[2021-05-03] MEDS ORDERED: REGADENOSON 0.4 MG/5 ML INJ IV ONE ×2 (08:26→11:06)
--- NOTE | 2021-05-03 09:08 | Progress Note ---
Assessment and Plan Impression * Acute kidney injury vs underlying CKD --Renal u/s: right 13cm, left 12.1cm; nml echogenicity * HFrEF --TTE: LVEF 35-40%; moderate to severe concentric LVH (Apr 28) * Pleural effusion * Hypertension * Hepatitis C Plan: * SCr improved to 1.9, peaked at 2.2 * UA with only 30+protein. UPCR still pending * Continue IV Lasix 40mg BID, can transition to po * Hold ARB while diuresing with IV lasix. Resume once renal function is stable * Continue antiHTN medications * Strict I/O * Await pending serologic work up * Dose medications for renal function * Avoid potential nephrotoxins * AM labs * Appreciate cardiology input Subjective Date of service: 05/03/21 Interval history: Patient has no complaints. Reports orthopnea improved. Feels much better Objective - Exam Narrative Exam: General appearance: well-developed, well-nourished EENT: ATNC Respiratory: Present: Clear to Ascultation Cardiology: regular, S1S2 Gastrointestinal: normal, no tenderness, no distended Integumentary: no rash, warm and dry Neurologic: no focal deficit, alert and oriented x3 Musculoskeletal: other (1-2+edema) Psychiatric: mood/affect appropriate, cooperative - Vital Signs Vital signs: Vital Signs - 12hr 05/02/21 05/02/21 05/03/21 22:00 23:36 02:00 Temperature 98.0 F Pulse Rate 55 L 59 L Respiratory 16 Rate Blood Pressure 109/85 O2 Sat by Pulse 97 97 Oximetry 05/03/21 05/03/21 03:40 07:27 Temperature 98.1 F 98.2 F Pulse Rate 75 63 Respiratory 16 18 Rate Blood Pressure 134/94 129/93 O2 Sat by Pulse 97 98 Oximetry - Lab 05/03/21 06:58 05/03/21 06:58 Most recent lab results Calcium 8.8 mg/dL (8.4-10.2) 05/03/21 06:58 Medications & Allergies - Medications Allergies/Adverse Reactions: Allergies No Known Allergies Allergy (Verified 05/03/21 07:36) Home Medications: Home Medications Medication Instructions Recorded Confirmed Last Taken Type Lisinopril/Hydrochlorothiazide 1 each PO QDAY 05/03/21 05/03/21 04/26/21 History [Zestoretic 10-12.5 mg Tablet] Multivitamin 1 each PO QDAY 05/03/21 05/03/21 04/27/21 History Active Medications: Generic Name Dose Route Start Last Admin Trade Name Freq PRN Reason Stop Dose Admin Acetaminophen 650 mg 04/28/21 22:52 Acetaminophen 325 Mg Tab PO Q4H PRN Pain MILD(1-3)/Fever >100.5/MICHEL Aspirin 81 mg 04/29/21 11:00 05/02/21 10:57 Aspirin Ec 81 Mg Tab PO 81 mg QDAY ROBERT Administration Carvedilol 12.5 mg 05/01/21 22:00 05/02/21 21:06 Carvedilol 12.5 Mg Tab PO 12.5 mg BID ROBERT Administration Furosemide 40 mg 04/29/21 06:00 05/03/21 05:04 Furosemide 40 Mg/4 Ml Inj IV 40 mg BID@0600,1800 ROBERT Administration Heparin Sodium (Porcine) 5,000 unit 04/29/21 06:00 05/03/21 05:04 Heparin 5,000 Unit/1 Ml Vial SUB-Q 5,000 unit Q8HR ROBERT Administration Magnesium Hydroxide 30 ml 04/28/21 22:52 Magnesium Hydroxide (Mom) Oral Liqd Udc PO Q4H PRN Constipation Melatonin 5 mg 04/30/21 16:43 05/02/21 21:14 Melatonin 5 Mg Tab PO 5 mg QHS PRN Administration Sleep Morphine Sulfate 2 mg 04/28/21 22:52 Morphine 2 Mg/1 Ml Inj IV Q4H PRN Pain, Moderate (4-6) Morphine Sulfate 4 mg 04/28/21 22:52 Morphine 4 Mg/1 Ml Inj IV Q4H PRN Pain , Severe (7-10) Ondansetron HCl 4 mg 04/28/21 22:52 Ondansetron 4 Mg/2 Ml Inj IV Q8H PRN Nausea And Vomiting Potassium Chloride 10 meq 04/29/21 10:00 05/02/21 10:57 Potassium Chloride Er 10 Meq Tab PO 10 meq QDAY ROBERT Administration Sodium Chloride 10 ml 04/29/21 10:00 05/02/21 10:59 Sodium Chloride 0.9% 10 Ml Flush Syringe IV 10 ml BID ROBERT Administration Sodium Chloride 10 ml 04/28/21 22:52 05/03/21 05:05 Sodium Chloride 0.9% 10 Ml Flush Syringe IV 10 ml PRN PRN Administration LINE FLUSH
--- NOTE | 2021-05-03 12:51 | Progress Note ---
Assessment and Plan - Patient Problems (1) CHF exacerbation Current Visit: Yes Status: Acute Plan to address problem: Patient with longstanding hypertension, uncontrolled due to noncompliance with medical therapy, presents with symptoms of heart failure and fluid overload, as well as a systolic heart murmur. Blood pressure is better controlled with systolics of 120-140. Echocardiogram shows a moderate severity, four-chamber cardiomyopathy, left ventricular e jection fraction 35 to 40%. There was also moderate left ventricle hypertrophy and moderate mitral regurgitation. Patient still has persistent edema, undergoing nephrology work-up for proteinuria and nephrotic syndrome. Today, a Lexiscan thallium stress test has been completed, results are pending. We will continue guideline directed medical therapy for hypertension controlled and moderate severity left ventricular systolic dysfunction. Subjective Date of service: 05/03/21 Interval history: Patient is comfortable no acute distress, no new cardiac events reported. He still has 1+ bilateral edema. Today, he was referred for Lexiscan thallium stress test. The test has been completed, he is undergoing stress imaging for final test results. Objective Vital Signs Temp Pulse Resp BP Pulse Ox 05/03/21 07:27 98.2 F 63 18 129/93 98 05/03/21 03:40 98.1 F 75 16 134/94 97 05/03/21 02:00 59 L 05/02/21 23:36 98.0 F 55 L 16 109/85 97 05/02/21 22:00 97 05/02/21 21:06 94 H 05/02/21 19:41 98.2 F 94 H 18 135/95 99 05/02/21 16:00 80 05/02/21 15:45 97.6 F 80 18 127/92 95 - Physical Examination General: Appears Well, No Apparent Distress HEENT: Positive: PERRL Neck: Positive: neck supple Cardiac: Positive: Reg Rate and Rhythm Lungs: Positive: Decreased Breath Sounds Neuro: Positive: Grossly Intact Abdomen: Positive: Soft Skin: Positive: Clear Extremities: Present: +1 Edema - Labs and Meds CBC 05/03/21 Range/Units 06:58 WBC 8.8 (4.5-11.0) K/mm3 RBC 3.82 (3.65-5.03) M/mm3 Hgb 11.1 L (11.8-15.2) gm/dl Hct 34.4 L (35.5-45.6) % Plt Count 205 (140-440) K/mm3 Lymph # (Auto) 2.5 (1.2-5.4) K/mm3 [place] # (Auto) 1.0 H (0.0-0.8) K/mm3 Eos # (Auto) 0.1 (0.0-0.4) K/mm3 Baso # (Auto) 0.0 (0.0-0.1) K/mm3 Comprehensive Metabolic Panel 05/03/21 Range/Units 06:58 Sodium 143 (137-145) mmol/L Potassium 4.1 (3.6-5.0) mmol/L Chloride 104.4 (98-107) mmol/L Carbon Dioxide 26 (22-30) mmol/L BUN 52 H (9-20) mg/dL Creatinine 1.9 H (0.8-1.3) mg/dL Glucose 95 (75-100) mg/dL Calcium 8.8 (8.4-10.2) mg/dL
[2021-05-03] MEDS: carvediloL 12.5 MG TAB PO SCH ×2 (13:08→21:09)
[2021-05-03] MEDS: POTASSIUM CHLORIDE ER 10 MEQ TAB PO SCH (13:08)
[2021-05-03] MEDS: ASPIRIN EC 81 MG TAB PO SCH (13:08)
[2021-05-04] MEDS: HEPARIN 5,000 UNIT/1 ML VIAL SUB-Q SCH ×3 (06:04→23:07)
[2021-05-04] MEDS: FUROSEMIDE 40 MG/4 ML INJ IV SCH ×2 (06:04→17:54)
[2021-05-04] MEDS: carvediloL 12.5 MG TAB PO SCH (09:36)
[2021-05-04] MEDS: ASPIRIN EC 81 MG TAB PO SCH (09:36)
[2021-05-04] MEDS: POTASSIUM CHLORIDE ER 10 MEQ TAB PO SCH (09:37)
[2021-05-04 10:35] LABS: Myeloperoxidase Antibody <1.0 AI (<1.0)
[2021-05-04] MEDS ORDERED: FUROSEMIDE 40 MG/4 ML INJ IV ONE (11:49)
--- NOTE | 2021-05-04 13:17 | Progress Note ---
Assessment and Plan - Patient Problems (1) CHF exacerbation Current Visit: Yes Status: Acute Plan to address problem: Patient with longstanding hypertension, uncontrolled due to noncompliance with medical therapy, presents with symptoms of heart failure and fluid overload, as well as a systolic heart murmur. Blood pressure is better controlled with systolics of 120-140. Echocardiogram shows a moderate severity, four-chamber cardiomyopathy, left ventricular e jection fraction 35 to 40%. There was also moderate left ventricle hypertrophy and moderate mitral regurgitation. Lexiscan thallium stress test demonstrates no evidence of significant ischemic disease as a basis for his moderate severity cardiomyopathy. Patient still has persistent edema, undergoing nephrology work-up for proteinuria and nephrotic syndrome. We will continue guideline directed medical therapy for hypertension controlled and moderate severity left ventricular systolic dysfunction. I have switched her beta-paul from carvedilol to metoprolol in the setting of nonsustained ventricular ectopy. Due to kidney disease, he may not readily tolerate SADIA or ARB therapy, we will instead use BiDil 1 tablet 3 times daily. Procardia XL 30 mg for hypertension control. Otherwise, patient is stable from a cardiac standpoint for discharge and outpatient follow-up with her traffic representative Dr. Nathan. Subjective Date of service: 05/04/21 Interval history: Patient is comfortable, alert and oriented x3, no new cardiac complaints. On hospital monitor, he has a sinus rhythm at 75. Earlier during the night there was a short burst of nonsustained ventricular tachycardia. Objective Vital Signs Temp Pulse Resp BP Pulse Ox 05/04/21 09:36 64 136/87 05/04/21 07:09 98.1 F 64 18 136/87 98 05/04/21 04:22 98.0 F 76 16 143/81 98 05/04/21 03:26 98.1 F 74 16 142/100 98 05/04/21 02:00 69 05/03/21 23:17 98 05/03/21 22:57 98.0 F 66 16 133/91 98 05/03/21 21:09 103 H 05/03/21 19:05 98.3 F 75 18 129/88 98 - Physical Examination General: Appears Well, No Apparent Distress HEENT: Positive: PERRL Neck: Positive: neck supple Cardiac: Positive: Reg Rate and Rhythm Lungs: Positive: Decreased Breath Sounds Neuro: Positive: Grossly Intact Abdomen: Positive: Soft Skin: Positive: Clear Extremities: Present: +1 Edema - Labs and Meds Comprehensive Metabolic Panel 05/04/21 Range/Units 10:25 Sodium 144 (137-145) mmol/L Potassium 4.1 (3.6-5.0) mmol/L Chloride 105.7 (98-107) mmol/L Carbon Dioxide 27 (22-30) mmol/L BUN 46 H (9-20) mg/dL Creatinine 1.5 H (0.8-1.3) mg/dL Glucose 117 H (75-100) mg/dL Calcium 9.0 (8.4-10.2) mg/dL
[2021-05-04] MEDS: NIFEdipine XL 30 MG TAB PO SCH (14:30)
[2021-05-04] MEDS: ISOSORB DINIT/HYDRALAZINE 20-37.5MG TAB PO SCH ×2 (14:30→23:07)
[2021-05-04] MEDS: METOPROLOL TARTRATE 50 MG TAB PO SCH ×2 (14:33→23:08)
--- NOTE | 2021-05-04 14:43 | Progress Note ---
Assessment and Plan Assessment and plan: #Acute systolic heart failure #Hypertension TTE revealing EF 35-40% with severe concentric LVH, RVSP of 45 mmHg Cardiology consulted; appreciate recs Stress test unremarkable for ischemic cardiomyopathy Continue medical management: Aspirin 81 mg daily, Lasix 40 mg IV twice daily, Bi Dil 1 tablet every 8 hours, metoprolol tartrate 50 mg twice daily, nifedipine 30 mg daily, and spironolactone 25 mg daily, Continue diuresis as patient still has significant bilateral lower extremity edema Continue to monitor #Acute hypoxic respiratory failure-resolved #Moderate pulmonary hypertension Likely secondary to heart failure (class II) Continue to monitor #KEYLA-improving Creatinine 1.5 (previously 1.9; as high as 2.2) Nephrology consulted; appreciate recs Renally dose medications and avoid nephrotoxic meds Renal ultrasound unremarkable Continue to monitor #Advanced care planning -Disease education conducted, care plan discussed, diagnoses discussed, prognosis discussed, and patient acknowledges understanding with care plan -Time: +30 min #Discharge planning - Patient is pending further IV diuresis - Case management has been made aware. - Discharge is tentatively tomorrow Disposition Plan: Pending discharge tomorrow Total Time Spent with Patient (Minutes): 45 minutes History Interval history: No acute events over night. The patient denies fevers, chills, nausea, vomiting, abdominal pain, chest pain/pressure, shortness of breath, urinary symptoms, weakness, or confusion. Hospitalist Physical - Constitutional Vitals: Temp Pulse Resp BP Pulse Ox 98.1 F 64 18 136/87 98 05/04/21 07:09 05/04/21 09:36 05/04/21 07:09 05/04/21 09:36 05/04/21 12:00 General appearance: Present: no acute distress, well-nourished - EENT Eyes: Present: PERRL, EOM intact ENT: hearing intact, clear oral mucosa, dentition normal - Neck Neck: Present: supple, normal ROM - Respiratory Respiratory effort: normal Respiratory: bilateral: CTA - Cardiovascular Rhythm: regular Heart Sounds: Present: S1 & S2 - Extremities Extremities: no ischemia, pulses intact, pulses symmetrical, normal temperature, normal color, Full ROM Extremity abnormal: edema (2+ pitting edema bilateral lower extremities to knees) Peripheral Pulses: within normal limits - Abdominal General gastrointestinal: soft, non-tender, non-distended, normal bowel sounds - Integumentary Integumentary: Present: clear, warm, dry - Psychiatric Psychiatric: appropriate mood/affect, intact judgment & insight, memory intact, cooperative - Neurologic Neurologic: CNII-XII intact, moves all extremities - Allied Health Allied health notes reviewed: nursing HEART Score - HEART Score Troponin: Troponin T 0.059 ng/mL (0.00-0.029) H 04/28/21 19:22 Results - Labs CBC & Chem 7: 05/03/21 06:58 05/04/21 10:25 Labs: Laboratory Last Values WBC 8.8 K/mm3 (4.5-11.0) 05/03/21 06:58 RBC 3.82 M/mm3 (3.65-5.03) 05/03/21 06:58 Hgb 11.1 gm/dl (11.8-15.2) L 05/03/21 06:58 Hct 34.4 % (35.5-45.6) L 05/03/21 06:58 MCV 90 fl (84-94) 05/03/21 06:58 MCH 29 pg (28-32) 05/03/21 06:58 MCHC 32 % (32-34) 05/03/21 06:58 RDW 15.5 % (13.2-15.2) H 05/03/21 06:58 Plt Count 205 K/mm3 (140-440) 05/03/21 06:58 Lymph % (Auto) 29.1 % (13.4-35.0) 05/03/21 06:58 [place] % (Auto) 11.7 % (0.0-7.3) H 05/03/21 06:58 Eos % (Auto) 0.7 % (0.0-4.3) 05/03/21 06:58 Baso % (Auto) 0.3 % (0.0-1.8) 05/03/21 06:58 Lymph # (Auto) 2.5 K/mm3 (1.2-5.4) 05/03/21 06:58 [place] # (Auto) 1.0 K/mm3 (0.0-0.8) H 05/03/21 06:58 Eos # (Auto) 0.1 K/mm3 (0.0-0.4) 05/03/21 06:58 Baso # (Auto) 0.0 K/mm3 (0.0-0.1) 05/03/21 06:58 Seg Neutrophils % 58.2 % (40.0-70.0) 05/03/21 06:58 Seg Neutrophils # 5.1 K/mm3 (1.8-7.7) 05/03/21 06:58 PT 13.6 Sec. (12.2-14.9) 04/28/21 19: INR 0.94 (0.87-1.13) 04/28/21 19: Sodium 144 mmol/L (137-145) 05/04/21 10:25 Potassium 4.1 mmol/L (3.6-5.0) 05/04/21 10:25 Chloride 105.7 mmol/L (98-107) 05/04/21 10:25 Carbon Dioxide 27 mmol/L (22-30) 05/04/21 10:25 Anion Gap 15 mmol/L 05/04/21 10:25 BUN 46 mg/dL (9-20) H 05/04/21 10:25 Creatinine 1.5 mg/dL (0.8-1.3) H 05/04/21 10:25 Estimated GFR 57 ml/min 05/04/21 10:25 BUN/Creatinine Ratio 31 % 05/04/21 10:25 Glucose 117 mg/dL (75-100) H 05/04/21 10:25 Calcium 9.0 mg/dL (8.4-10.2) 05/04/21 10:25 Total Bilirubin 0.70 mg/dL (0.1-1.2) 04/28/21 19: AST 25 units/L (5-40) 04/28/21 19: ALT 31 units/L (7-56) 04/28/21 19: Alkaline Phosphatase 108 units/L (35-129) 04/28/21 19: Total Creatine Kinase 141 units/L (55-170) 04/28/21: CK-MB (CK-2) 4.5 ng/mL (0.0-4.0) H 04/28/21 19: CK-MB (CK-2) Rel Index 3.1 (0-4) 04/28/21 19: Troponin T 0.059 ng/mL (0.00-0.029) H 04/28/21 19: NT-Pro-B Natriuret Pep 74493 pg/mL (0-900) H 04/28/21 19: Total Protein 6.8 g/dL (6.3-8.2) 04/28/21 19: Albumin 3.5 g/dL (3.9-5) L 04/28/21: Albumin/Globulin Ratio 1.1 % 04/28/21 19: Triglycerides 65 mg/dL (2-149) 04/28/21: Cholesterol 160 mg/dL (50-199) 04/28/21: LDL Cholesterol Direct 109 mg/dL (50-130) 04/28/21: HDL Cholesterol 42 mg/dL (40-59) 04/28/21: Cholesterol/HDL Ratio 3.80 % 04/28/21: Lipase 28 units/L (13-60) 04/28/21: Urine Color Yellow (Yellow) 04/30/21 10:08 Urine Turbidity Clear (Clear) 04/30/21 10:08 Urine pH 5.0 (5.0-7.0) 04/30/21 10:08 Ur Specific [place] 1.009 (1.003-1.030) 04/30/21 10:08 Urine Protein 30 mg/dl mg/dL (Negative) 04/30/21 10:08 Urine Glucose (UA) Neg mg/dL (Negative) 04/30/21 10:08 Urine Ketones Neg mg/dL (Negative) 04/30/21 10:08 Urine Blood Neg (Negative) 04/30/21 10:08 Urine Nitrite Neg (Negative) 04/30/21 10:08 Urine Bilirubin Neg (Negative) 04/30/21 10:08 Urine Urobilinogen < 2.0 mg/dL (<2.0) 04/30/21 10:08 Ur Leukocyte Esterase Neg (Negative) 04/30/21 10:08 Urine WBC (Auto) 1.0 /HPF (0.0-6.0) 04/30/21 10:08 Urine RBC (Auto) 1.0 /HPF (0.0-6.0) 04/30/21 10:08 U Epithel Cells (Auto) < 1.0 /HPF (0-13.0) 04/30/21 10:08 Hyaline Casts 3 /LPF 04/30/21 10:08 Urine Mucus Few /HPF 04/28/21 22:30 Proteinase 3 (PR3) Ab <1.0 AI (<1.0) 04/30/21 08:24 Myeloperoxidase Ab <1.0 AI (<1.0) 04/30/21 08:24 Hepatitis A IgM Ab Non-reactive (NonReactive) 04/30/21 08:24 Hep Bs Antigen Non-reactive (Negative) 04/30/21 08:24 Hep B Core IgM Ab Non-reactive (NonReactive) 04/30/21 08:24 Hepatitis C Antibody Reactive (NonReactive) A 04/30/21 08:24 Patel/IV: Voiding Method Toilet Active Medications - Current Medications Current Medications: Generic Name Dose Route Start Last Admin Trade Name Freq PRN Reason Stop Dose Admin Acetaminophen 650 mg 04/28/21 22:52 Acetaminophen 325 Mg Tab PO Q4H PRN Pain MILD(1-3)/Fever >100.5/MICHEL Aspirin 81 mg 04/29/21 11:00 05/04/21 09:36 Aspirin Ec 81 Mg Tab PO 81 mg QDAY ROBERT Administration Furosemide 40 mg 05/04/21 18:00 Furosemide 40 Mg/4 Ml Inj IV BID@0600,1800 [facility] Heparin Sodium (Porcine) 5,000 unit 04/29/21 06:00 05/04/21 14:30 Heparin 5,000 Unit/1 Ml Vial SUB-Q 5,000 unit Q8HR ROBERT Administration Isosorbide Dinitrate/Hydralazine 1 each 05/04/21 14:00 05/04/21 14:30 Isosorb Dinit/Hydralazine 20-37.5mg Tab PO 1 each Q8HR ROBERT Administration Magnesium Hydroxide 30 ml 04/28/21 22:52 Magnesium Hydroxide (Mom) Oral Liqd Udc PO Q4H PRN Constipation Melatonin 5 mg 04/30/21 16:43 05/02/21 21:14 Melatonin 5 Mg Tab PO 5 mg QHS PRN Administration Sleep Metoprolol Tartrate 50 mg 05/04/21 14:00 05/04/21 14:33 Metoprolol Tartrate 50 Mg Tab PO 50 mg BID ROBERT Administration Morphine Sulfate 2 mg 04/28/21 22:52 Morphine 2 Mg/1 Ml Inj IV Q4H PRN Pain, Moderate (4-6) Morphine Sulfate 4 mg 04/28/21 22:52 Morphine 4 Mg/1 Ml Inj IV Q4H PRN Pain , Severe (7-10) Nifedipine 30 mg 05/04/21 14:00 05/04/21 14:30 Nifedipine Xl 30 Mg Tab PO 30 mg QDAY ROBERT Administration Ondansetron HCl 4 mg 04/28/21 22:52 Ondansetron 4 Mg/2 Ml Inj IV Q8H PRN Nausea And Vomiting Sodium Chloride 10 ml 04/29/21 10:00 05/04/21 09:41 Sodium Chloride 0.9% 10 Ml Flush Syringe IV 10 ml BID ROBERT Administration Sodium Chloride 10 ml 04/28/21 22:52 05/04/21 12:55 Sodium Chloride 0.9% 10 Ml Flush Syringe IV 10 ml PRN PRN Administration LINE FLUSH Spironolactone 25 mg 05/05/21 10:00 Spironolactone 25 Mg Tab PO QDAY ROBERT
--- NOTE | 2021-05-04 19:35 | Progress Note ---
Assessment and Plan Impression * Acute kidney injury vs underlying CKD --Renal u/s: right 13cm, left 12.1cm; nml echogenicity * HFrEF --TTE: LVEF 35-40%; moderate to severe concentric LVH (Apr 28) * Pleural effusion * Hypertension * Hepatitis C Plan: * SCr improved to 1.5, peaked at 2.2. Electrolytes remain WNL * UA with only 30+protein. UPCR still pending * Continue IV Lasix 40mg BID, can transition to po from renal standpoint * Hold ARB while diuresing with IV lasix. Ok to resume if renal function is stable * Continue antiHTN medications * Strict I/O * Await pending serologic work up- ANCA negative, c3 WNL, C4 mildly low likely no little clinical signifcance * Dose medications for renal function * Avoid potential nephrotoxins * AM labs * Appreciate cardiology input * Will benefit from outpatient KEYLA/CKD follow up, will ensure on discharge Subjective Date of service: 05/04/21 Interval history: Resting in bed this AM Objective - Exam Narrative Exam: General appearance: well-developed, well-nourished EENT: ATNC Respiratory: Present: Clear to Ascultation Cardiology: regular, S1S2 Gastrointestinal: normal, no tenderness, no distended Integumentary: no rash, warm and dry Neurologic: no focal deficit, alert and oriented x3 Musculoskeletal: other (1-2+edema) Psychiatric: mood/affect appropriate, cooperative - Vital Signs Vital signs: Vital Signs - 12hr 05/04/21 05/04/21 05/04/21 09:36 12:00 15:54 Temperature 98.3 F Pulse Rate 64 66 Respiratory 20 Rate Blood Pressure 136/87 112/81 O2 Sat by Pulse 98 98 Oximetry - Lab 05/03/21 06:58 05/04/21 10:25 Most recent lab results Calcium 9.0 mg/dL (8.4-10.2) 05/04/21 10:25 Medications & Allergies - Medications Allergies/Adverse Reactions: Allergies No Known Allergies Allergy (Verified 05/03/21 07:36) Home Medications: Home Medications Medication Instructions Recorded Confirmed Last Taken Type Multivitamin 1 each PO QDAY 05/03/21 05/03/21 04/27/21 History Aspirin [Adult Aspirin] 81 mg PO DAILY #30 tab 05/04/21 Unknown Rx Furosemide [Lasix TAB] 40 mg PO BID #60 tablet 05/04/21 Unknown Rx carvediloL [Coreg] 12.5 mg PO BID #60 tablet 05/04/21 Unknown Rx Active Medications: Generic Name Dose Route Start Last Admin Trade Name Freq PRN Reason Stop Dose Admin Acetaminophen 650 mg 04/28/21 22:52 Acetaminophen 325 Mg Tab PO Q4H PRN Pain MILD(1-3)/Fever >100.5/MICHEL Aspirin 81 mg 04/29/21 11:00 05/04/21 09:36 Aspirin Ec 81 Mg Tab PO 81 mg QDAY ROBERT Administration Furosemide 40 mg 05/04/21 18:00 05/04/21 17:54 Furosemide 40 Mg/4 Ml Inj IV 40 mg BID@0600,1800 ROBERT Administration Heparin Sodium (Porcine) 5,000 unit 04/29/21 06:00 05/04/21 14:30 Heparin 5,000 Unit/1 Ml Vial SUB-Q 5,000 unit Q8HR ROBERT Administration Isosorbide Dinitrate/Hydralazine 1 each 05/04/21 14:00 05/04/21 14:30 Isosorb Dinit/Hydralazine 20-37.5mg Tab PO 1 each Q8HR ROBERT Administration Magnesium Hydroxide 30 ml 04/28/21 22:52 Magnesium Hydroxide (Mom) Oral Liqd Udc PO Q4H PRN Constipation Melatonin 5 mg 04/30/21 16:43 05/02/21 21:14 Melatonin 5 Mg Tab PO 5 mg QHS PRN Administration Sleep Metoprolol Tartrate 50 mg 05/04/21 14:00 05/04/21 14:33 Metoprolol Tartrate 50 Mg Tab PO 50 mg BID ROBERT Administration Morphine Sulfate 2 mg 04/28/21 22:52 Morphine 2 Mg/1 Ml Inj IV Q4H PRN Pain, Moderate (4-6) Morphine Sulfate 4 mg 04/28/21 22:52 Morphine 4 Mg/1 Ml Inj IV Q4H PRN Pain , Severe (7-10) Nifedipine 30 mg 05/04/21 14:00 05/04/21 14:30 Nifedipine Xl 30 Mg Tab PO 30 mg QDAY ROBERT Administration Ondansetron HCl 4 mg 04/28/21 22:52 Ondansetron 4 Mg/2 Ml Inj IV Q8H PRN Nausea And Vomiting Sodium Chloride 10 ml 04/29/21 10:00 05/04/21 09:41 Sodium Chloride 0.9% 10 Ml Flush Syringe IV 10 ml BID ROBERT Administration Sodium Chloride 10 ml 04/28/21 22:52 05/04/21 12:55 Sodium Chloride 0.9% 10 Ml Flush Syringe IV 10 ml PRN PRN Administration LINE FLUSH Spironolactone 25 mg 05/05/21 10:00 Spironolactone 25 Mg Tab PO QDAY ROBERT
[2021-05-04 19:55] LABS: Creatinine,Urine 179.4 mg/dL (0.1-20.0); Protein/Creatinine Ratio,Urine 0.37
[2021-05-04] MEDS: MELATONIN 5 MG TAB PO PRN (23:08)
[2021-05-05 06:31] LABS: BUN/Creatinine Ratio 29; Blood Urea Nitrogen 40 mg/dL (9-20); Calcium 8.3 mg/dL (8.4-10.2); Hemolysis Index 0
[2021-05-05] MEDS: ISOSORB DINIT/HYDRALAZINE 20-37.5MG TAB PO SCH (07:02)
[2021-05-05] MEDS: HEPARIN 5,000 UNIT/1 ML VIAL SUB-Q SCH (07:02)
[2021-05-05] MEDS: FUROSEMIDE 40 MG/4 ML INJ IV SCH (07:04)
[2021-05-05] MEDS ORDERED: POTASSIUM CHLORIDE 10 MEQ 10 MEQ/100 ML BAG IV SCH (08:00)
[2021-05-05] MEDS ORDERED: POTASSIUM CHLORIDE ER 20 MEQ TAB PO SCH ×2 (08:00→13:00)
[2021-05-05 09:17] VITALS: BP 130/81
[2021-05-05] MEDS ORDERED: SPIRONOLACTONE 25 MG TAB PO SCH (10:00)
--- NOTE | 2021-05-05 10:24 | Progress Note ---
Assessment and Plan Impression * Acute kidney injury vs underlying CKD --Renal u/s: right 13cm, left 12.1cm; nml echogenicity * HFrEF --TTE: LVEF 35-40%; moderate to severe concentric LVH (Apr 28) * Pleural effusion * Hypertension * Hepatitis C Plan: * SCr improved to 1.4, peaked at 2.2. * Note K 3.1, replete prn, likely furosemide related loss. Note spironolactone per cardiology, agree from renal standpoint * UA with only 30+protein. UPCR minimal at 0.4g * Continue PO Lasix 40mg BID * Hold ARB for now, will consider restarting on outpatient basis * Continue antiHTN medications * Strict I/O * Await pending serologic work up- ANCA negative, c3 WNL, C4 mildly low likely no little clinical signifcance * Dose medications for renal function * Avoid potential nephrotoxins * AM labs * Appreciate cardiology input * Will benefit from outpatient KEYLA/CKD follow up, will ensure on discharge with SCN Subjective Date of service: 05/05/21 Interval history: Resting in bed this AM, notes feeling well, ready to go home Objective - Exam Narrative Exam: General appearance: well-developed, well-nourished EENT: ATNC Respiratory: Present: Clear to Ascultation Cardiology: regular, S1S2 Gastrointestinal: normal, no tenderness, no distended Integumentary: no rash, warm and dry Neurologic: no focal deficit, alert and oriented x3 Musculoskeletal: other (1-2+edema) Psychiatric: mood/affect appropriate, cooperative - Vital Signs Vital signs: Vital Signs - 12hr 05/04/21 05/04/21 05/05/21 23:07 23:08 00:00 Temperature Pulse Rate 68 68 Respiratory Rate Blood Pressure 120/85 120/85 O2 Sat by Pulse 98 Oximetry 05/05/21 05/05/21 05/05/21 00:26 02:00 06:05 Temperature 98.2 F 98.5 F Pulse Rate 70 63 68 Respiratory 18 18 Rate Blood Pressure 110/78 123/88 O2 Sat by Pulse 95 96 Oximetry 05/05/21 05/05/21 07:02 08:42 Temperature 97.8 F Pulse Rate 68 70 Respiratory 18 Rate Blood Pressure 123/88 130/81 O2 Sat by Pulse 94 Oximetry - Lab 05/03/21 06:58 05/05/21 04:25 Most recent lab results Calcium 8.3 mg/dL (8.4-10.2) L 05/05/21 04:25 Urine Creatinine 179.4 mg/dL (0.1-20.0) H 05/02/21 18:10 Urine Total Protein 66 mg/dL (5-11.8) H 05/02/21 18:10 Medications & Allergies - Medications Allergies/Adverse Reactions: Allergies No Known Allergies Allergy (Verified 05/03/21 07:36) Home Medications: Home Medications Medication Instructions Recorded Confirmed Last Taken Type Multivitamin 1 each PO QDAY 05/03/21 05/03/21 04/27/21 History Aspirin [Adult Aspirin] 81 mg PO DAILY #30 tab 05/04/21 Unknown Rx Furosemide [Lasix TAB] 40 mg PO BID #60 tablet 05/04/21 Unknown Rx carvediloL [Coreg] 12.5 mg PO BID #60 tablet 05/04/21 Unknown Rx Active Medications: Generic Name Dose Route Start Last Admin Trade Name Freq PRN Reason Stop Dose Admin Acetaminophen 650 mg 04/28/21 22:52 Acetaminophen 325 Mg Tab PO Q4H PRN Pain MILD(1-3)/Fever >100.5/MICHEL Aspirin 81 mg 04/29/21 11:00 05/04/21 09:36 Aspirin Ec 81 Mg Tab PO 81 mg QDAY ROBERT Administration Furosemide 40 mg 05/05/21 18:00 Furosemide 40 Mg Tab PO 0600,1800 ROBERT Heparin Sodium (Porcine) 5,000 unit 04/29/21 06:00 05/05/21 07:02 Heparin 5,000 Unit/1 Ml Vial SUB-Q 5,000 unit Q8HR ROBERT Administration Potassium Chloride 10 meq in 100 mls @ 100 mls/hr 05/05/21 08:00 Kcl 10meq/100ml IV 05/05/21 11:59 Q1H ROBERT Isosorbide Dinitrate/Hydralazine 1 each 05/04/21 14:00 05/05/21 07:02 Isosorb Dinit/Hydralazine 20-37.5mg Tab PO 1 each Q8HR ROBERT Administration Magnesium Hydroxide 30 ml 04/28/21 22:52 Magnesium Hydroxide (Mom) Oral Liqd Udc PO Q4H PRN Constipation Melatonin 5 mg 04/30/21 16:43 05/04/21 23:08 Melatonin 5 Mg Tab PO 5 mg QHS PRN Administration Sleep Metoprolol Tartrate 50 mg 05/04/21 14:00 05/04/21 23:08 Metoprolol Tartrate 50 Mg Tab PO 50 mg BID ROBERT Administration Morphine Sulfate 2 mg 04/28/21 22:52 Morphine 2 Mg/1 Ml Inj IV Q4H PRN Pain, Moderate (4-6) Morphine Sulfate 4 mg 04/28/21 22:52 Morphine 4 Mg/1 Ml Inj IV Q4H PRN Pain , Severe (7-10) Nifedipine 30 mg 05/04/21 14:00 05/04/21 14:30 Nifedipine Xl 30 Mg Tab PO 30 mg QDAY ROBERT Administration Ondansetron HCl 4 mg 04/28/21 22:52 Ondansetron 4 Mg/2 Ml Inj IV Q8H PRN Nausea And Vomiting Potassium Chloride 40 meq 05/05/21 08:00 Potassium Chloride Er 20 Meq Tab PO 05/05/21 11:00 ONCE@0800 ROBERT Sodium Chloride 10 ml 04/29/21 10:00 05/05/21 07:03 Sodium Chloride 0.9% 10 Ml Flush Syringe IV 10 ml BID ROBERT Administration Sodium Chloride 10 ml 04/28/21 22:52 05/04/21 12:55 Sodium Chloride 0.9% 10 Ml Flush Syringe IV 10 ml PRN PRN Administration LINE FLUSH Spironolactone 25 mg 05/05/21 10:00 Spironolactone 25 Mg Tab PO QDAY ROBERT
--- NOTE | 2021-05-05 10:59 | Discharge Summary ---
Providers - Providers Date of Admission: 04/29/21 13:21 Date of discharge: 05/05/21 Attending physician: ELSY BELTRAN MD 04/28/21 22:52 Consult to Physician [CONS] Routine Comment: Consulting Provider: HEMA NATHAN Physician Instructions: Reason For Exam: CHF 04/29/21 03:06 Consult to Physician [CONS] Routine Comment: Consulting Provider: COURTNEY DUVALL Physician Instructions: Reason For Exam: KEYLA Primary care physician: [employer] Hospitalization Reason for admission: Acute systolic heart failure; acute hypoxic respiratory failure Condition: Fair Pertinent studies: Reviewed Procedures: Stress testunremarkable Hospital course: The patient is a 66-year-old male past medical history of hypertension and systolic heart failure who presented with complaints of shortness of breath and progressive swelling of his bilateral lower extremities. The patient was found to be hypoxic and requiring supplemental oxygen; he was also found to have an KEYLA (creatinine as high as 2.2). The patient was evaluated by cardiology who performed a stress test that was found to be unremarkable for ischemic cardiomyopathy. The patient underwent IV diuresis to assist with volume overload. The patient was weaned off of supplemental oxygen. Nephrology was consulted for management of KEYLA, and the patient's creatinine has since improved to 1.4. The patient was counseled about the importance of medication compliance, salt restriction, and fluid restriction. The patient expresses understanding. Patient will follow with his armed security professional (Dr. Nathan) upon discharge. The patient will also follow-up with his primary care provider. Patient expresses understanding. Patient is safe for medical discharge. Disposition: HOME / SELF CARE / HOMELESS Final Discharge Diagnosis (Prints w/discharge instructions): Acute systolic heart failure, hypertension, acute hypoxic respiratory failure, moderate pulmonary hypertension, KEYLA, hypokalemia Time spent for discharge: 45 min Core Measure Documentation - Palliative Care Palliative Care/ Comfort Measures: Not Applicable - Core Measures Any of the following diagnoses?: heart failure - Heart Failure Discharge Requirements SADIA/ARB for LVSD if EF <40%: Not Applicable Reason for no SADIA/ARB: Renal impairment Beta paul at discharge: Yes Exam - Constitutional Vitals: Temp Pulse Resp BP Pulse Ox 97.8 F 70 18 130/81 94 05/05/21 08:42 05/05/21 08:42 05/05/21 08:42 05/05/21 08:42 05/05/21 08:42 General appearance: Present: no acute distress, well-nourished - EENT Eyes: Present: PERRL, EOM intact ENT: hearing intact, clear oral mucosa, dentition normal - Neck Neck: Present: supple, normal ROM - Respiratory Respiratory effort: normal Respiratory: bilateral: CTA - Cardiovascular Rhythm: regular Heart Sounds: Present: S1 & S2 - Extremities Extremities: no ischemia, pulses intact, pulses symmetrical, normal temperature, normal color, Full ROM Extremity abnormal: edema (1+ pitting edema bilateral lower extremities to [place]) Peripheral Pulses: within normal limits - Abdominal General gastrointestinal: Present: soft, non-tender, non-distended, normal bowel sounds Male genitourinary: Present: deferred - Rectal Rectal Exam: deferred - Integumentary Integumentary: Present: clear, warm, dry - Musculoskeletal Musculoskeletal: strength equal bilaterally - Psychiatric Psychiatric: appropriate mood/affect, intact judgment & insight, memory intact, cooperative - Neurologic Neurologic: CNII-XII intact, moves all extremities - Allied Health Allied health notes reviewed: nursing Plan Activity: advance as tolerated Diet: low salt Additional Instructions: The patient is a 66-year-old male past medical history of hypertension and systolic heart failure who presented with complaints of shortness of breath and progressive swelling of his bilateral lower extremities. The patient was found to be hypoxic and requiring supplemental oxygen; he was also found to have an KEYLA (creatinine as high as 2.2). The patient was evaluated by cardiology who performed a stress test that was found to be unremarkable for ischemic cardiomyopathy. The patient underwent IV diuresis to assist with volume overload. The patient was weaned off of supplemental oxygen. Nephrology was consulted for management of KEYLA, and the patient's creatinine has since improved to 1.4. The patient was counseled about the importance of medication compliance, salt restriction, and fluid restriction. The patient expresses understanding. Patient will follow with his armed security professional (Dr. Nathan) upon discharge. The patient will also follow-up with his primary care provider. Patient expresses understanding. Patient is safe for medical discharge. Care Plan Goals: Patient should avoid use of NSAIDs, ibuprofen, Aleve, Motrin, or naproxen. Assessment: The patient is a 66-year-old male past medical history of hypertension and systolic heart failure who presented with complaints of shortness of breath and progressive swelling of his bilateral lower extremities. The patient was found to be hypoxic and requiring supplemental oxygen; he was also found to have an KEYLA (creatinine as high as 2.2). The patient was evaluated by cardiology who performed a stress test that was found to be unremarkable for ischemic cardiomyopathy. The patient underwent IV diuresis to assist with volume overload. The patient was weaned off of supplemental oxygen. Nephrology was consulted for management of KEYLA, and the patient's creatinine has since improved to 1.4. The patient was counseled about the importance of medication compliance, salt restriction, and fluid restriction. The patient expresses understanding. Patient will follow with his armed security professional (Dr. Nathan) upon discharge. The patient will also follow-up with his primary care provider. Patient expresses understanding. Patient is safe for medical discharge. Follow up with: PRIMARY CARE, [Primary Care Provider] - 7 Days Forms: Work/School Release Form Prescriptions: Aspirin [Adult Aspirin] 81 mg PO DAILY #30 tab carvediloL [Coreg] 12.5 mg PO BID #60 tablet Furosemide [Lasix TAB] 40 mg PO BID #60 tablet
[2021-05-05] MEDS: NIFEdipine XL 30 MG TAB PO SCH (12:35)
[2021-05-05] MEDS: METOPROLOL TARTRATE 50 MG TAB PO SCH (12:35)
[2021-05-05] MEDS: ASPIRIN EC 81 MG TAB PO SCH (12:39)
[2021-05-05] MEDS ORDERED: SODIUM CHLORIDE 0.9% 250ML 250 ML ONE (12:49)
[2021-05-05] MEDS ORDERED: FUROSEMIDE 40 MG TAB PO SCH (18:00)
--- NOTE | 2021-05-06 12:37 | Electrocardiograph Report ---
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
== END 2021-05-05 16:56 | disposition home or self-care (01) | DRG 291 ==
LOC: ED 17:52 → 4A 22:52 → OBSVTOIN 04-29 13:21 → 4A 04-29 16:22
PROVIDERS: ADMIT Internal Medicine Geriatric Medicine; ATTEND Student in an Organized Health Care Education/Training Program
DX: I11.0 Hypertensive heart disease with heart failure (principal); J96.01 Acute respiratory failure with hypoxia; I50.23 Acute on chronic systolic (congestive) heart failure; N17.9 Acute kidney failure, unspecified; J91.8 Pleural effusion in other conditions classified elsewhere; I16.0 Hypertensive urgency; R77.8 Other specified abnormalities of plasma proteins; B19.20 Unspecified viral hepatitis C without hepatic coma; I27.20 Pulmonary hypertension, unspecified; E87.6 Hypokalemia
CPT/HCPCS: 36415; 71046; 76770; 78452; 80048; 80053; 80061; 80074; 81001; 82550; 82553; 82570; 83690; 83880; 84156; 84484; 85025; 85610; 86021; 86160; 86334; 93005; 93017; 93306; G0378; J9280; A9502; J1644; J1940; J2785

== ENCOUNTER 2021-06-04 09:38 | Outpatient (CLI) | payer BC ==
[2021-06-04 10:44] LABS: Albumin 3.7 g/dL (3.9-5); BUN/Creatinine Ratio 20; Blood Urea Nitrogen 22 mg/dL (9-20); Calcium 9.8 mg/dL (8.4-10.2); Hemolysis Index 0
[2021-06-04 13:03] LABS: Creatinine,Urine 196.7 mg/dL (0.1-20.0)
[2021-06-04 13:14] LABS: Bilirubin,Urine NEG (Negative); Blood,Urine MOD (Negative); Color,Urine Yellow (Yellow); Hyaline Casts,Urine 2 /LPF; Mucus,Urine FEW /HPF; Urobilinogen,Urine < 2.0 mg/dL (<2.0)
[2021-06-04 13:22] LABS: Protein,Urine >500 mg/dL (Negative); Protein/Creatinine Ratio,Urine 2.1
== END 2021-06-04 09:39 | disposition home or self-care (01) ==
LOC: LAB 09:38
PROVIDERS: ATTEND Internal Medicine Nephrology
DX: R94.4 Abnormal results of kidney function studies (principal)
CPT/HCPCS: 36415; 80048; 81001; 82040; 82570; 84100; 84156

== ENCOUNTER 2021-06-25 09:57 | Outpatient (CLI) | payer BC ==
[2021-06-25 10:48] LABS: Albumin 3.6 g/dL (3.9-5); BUN/Creatinine Ratio 23; Blood Urea Nitrogen 21 mg/dL (9-20); Calcium 9.5 mg/dL (8.4-10.2); Hemolysis Index 0
== END 2021-06-25 09:58 | disposition home or self-care (01) ==
LOC: LAB 09:57
PROVIDERS: ATTEND Internal Medicine Nephrology
DX: R60.9 Edema, unspecified (principal)
CPT/HCPCS: 36415; 80048; 82040; 84100